=== PATIENT | male | born 1930 | race Caucasian/White ===

== ENCOUNTER → 2016-10-16 | Outpatient (CLI) | payer OTHER ==
[~2016-10-16] MED LIST: ASPI325T45 PO; BRIM0.2S TOP; GLC/500 PO; LANS15CA27 PO; SIMV10TA5 PO; ZOLP5TAB PO
[2016-10-16 11:20] LABS: BASO % 0.5 %; BASO ABS # 0.03 K/uL (0-0.2); COMPLETE YES; EOS % 4.9 %; HEMATOCRIT 45.4 % (42-52); IG% 0.3 %; LYMPH % 34.9 %; LYMPH ABS # 2.07 K/uL (1.2-3.4); MEAN CELL VOLUME 92.1 fL (80-100); MEAN CORPUSCULAR HEMOGLOBIN 30.8 pg (25-34); MEAN CORPUSCULAR HGB CONC 33.5 g/dl (32-36); MEAN PLATELET VOLUME 10.3 fL (7.4-10.4); MONO % 9.3 %; NEUT % 50.1 %; PLATELET COUNT 251 K/uL (130-400); RED BLOOD COUNT 4.93 M/uL (4.7-6.1); WHITE BLOOD COUNT 5.93 K/uL (4.8-10.8)
[2016-10-16 11:39] LABS: ALT/SGPT 32 U/L (12-78); BLOOD UREA NITROGEN 18 mg/dl (7-18); BUN/CREATININE RATIO 15.3 (10-20); CARBON DIOXIDE 28 mmol/L (21-32); CHLORIDE 106 mmol/L (98-107); CHOLESTEROL 176 mg/dl (0-200); GLUCOSE 113 mg/dl (70-99); POTASSIUM 4.2 mmol/L (3.5-5.1); SODIUM 143 mmol/L (136-145); TRIGLYCERIDES 198 mg/dl (0-150); VERY LOW DENSITY LIPOPROT CALC 40 mg/dl
[2016-10-16 11:41] LABS: ESTIMATED AVERAGE GLUCOSE 128 mg/dl; HA1C FLAG Normal (Normal)
[2016-10-16 11:46] LABS: ALB/GLOB RATIO 1.2 (0.9-2); ALKALINE PHOSPHATASE 71 U/L (45-117); AST/SGOT 25 U/L (15-37); CHOLESTEROL/HDL RATIO 4.6; HDL CHOLESTEROL 38 mg/dl; LDL CHOLESTEROL CALCULATED 98 mg/dl
--- NOTE | 2016-10-20 11:03 | CODING QUERY MEDICAL NECESSITY ---
SUPPORTING DIAGNOSIS NEEDED A supporting diagnosis is required for the test/procedure performed on this patient in order for us to be reimbursed by the patient's insurance. Please provide a supporting diagnosis for the following test/procedure listed below next to the test name along with your signature. *If there is no additional diagnosis for this patient that would support the following test/procedure please document that below next to the test/procedure. Test(s)/Procedure(s) that require a supporting diagnosis: * HEMOGLOBIN A1C DIAGNOSIS: Provider Signature: Date: Thank you Gavi Jamil [facility] Information Management Once completed, please kindly fax back to [phone] For questions please call [phone]
== END | disposition home or self-care (01) ==
LOC: C.LABBC 06:56
PROVIDERS: ATTEND Internal Medicine
DX: E78.5 Hyperlipidemia, unspecified (principal); E11.9 Type 2 diabetes mellitus without complications

== ENCOUNTER → 2017-03-27 | Outpatient (CLI) | payer OTHER ==
[2017-03-27 11:07] LABS: BASO % 0.5 %; BASO ABS # 0.03 K/uL (0-0.2); COMPLETE YES; EOS % 5.9 %; HEMATOCRIT 44.6 % (42-52); IG% 0.2 %; LYMPH ABS # 2.12 K/uL (1.2-3.4); MEAN CELL VOLUME 89.4 fL (80-100); MEAN CORPUSCULAR HEMOGLOBIN 31.1 pg (25-34); MEAN CORPUSCULAR HGB CONC 34.8 g/dl (32-36); MEAN PLATELET VOLUME 10.1 fL (7.4-10.4); MONO % 8.4 %; PLATELET COUNT 246 K/uL (130-400); RED BLOOD COUNT 4.99 M/uL (4.7-6.1); WHITE BLOOD COUNT 6.63 K/uL (4.8-10.8)
[2017-03-27 11:27] LABS: ALT/SGPT 27 U/L (12-78); BLOOD UREA NITROGEN 23 mg/dl (7-18); BUN/CREATININE RATIO 17.9 (10-20); CALCIUM 9.2 mg/dl (8.5-10.1); CARBON DIOXIDE 30 mmol/L (21-32); CHLORIDE 105 mmol/L (98-107); CHOLESTEROL 152 mg/dl (0-200); GLUCOSE 107 mg/dl (70-99); POTASSIUM 4.1 mmol/L (3.5-5.1); SODIUM 140 mmol/L (136-145); TRIGLYCERIDES 165 mg/dl (0-150); VERY LOW DENSITY LIPOPROT CALC 33 mg/dl
[2017-03-27 11:28] LABS: ESTIMATED AVERAGE GLUCOSE 126 mg/dl; HA1C FLAG Normal (Normal)
[2017-03-27 11:30] LABS: ALB/GLOB RATIO 1.2 (0.9-2); ALKALINE PHOSPHATASE 76 U/L (45-117); AST/SGOT 19 U/L (15-37); CHOLESTEROL/HDL RATIO 4.1; HDL CHOLESTEROL 37 mg/dl; LDL CHOLESTEROL CALCULATED 82 mg/dl
== END | disposition home or self-care (01) ==
LOC: C.LABBC 07:25
PROVIDERS: ATTEND Internal Medicine
DX: K21.9 Gastro-esophageal reflux disease without esophagitis (principal); R74.8 Abnormal levels of other serum enzymes; E11.9 Type 2 diabetes mellitus without complications; E78.5 Hyperlipidemia, unspecified; E55.9 Vitamin D deficiency, unspecified

== ENCOUNTER 2021-01-24 12:03 | Inpatient (IN) ==
[2021-01-24] MEDS ORDERED: HYDROmorphone INJ 0.5 MG/0.5 ML SYR IV PRN ×2 (13:22)
--- NOTE | 2021-01-24 13:28 | XRay Report ---
LEFT FEMUR 2 VIEWS CLINICAL HISTORY: Fall with left hip pain and decreased mobility. FINDINGS: AP and crosstable lateral views of the left femur are obtained. No prior studies are availa ble for comparison at the time of dictation. The examination is degraded by inability to properly pos ition the patient. The skeletal structures are osteopenic. There is a nondisplaced intertrochanteric fracture of the left femur. Overlying soft tissue edema is noted. The distal femur appears intact. Th e visualized left hemipelvis is intact. The hip joint is maintained noting mild to moderate degenerat paresh joint space narrowing. Atherosclerotic calcification is noted in the popliteal artery. IMPRESSION: Nondisplaced intertrochanteric fracture of the left femur. Electronically signed by: Joe Madrid M.D. 01/24/2021 1:26 PM
[2021-01-24] MEDS ORDERED: SODIUM CHLORIDE 0.9% 1000ML 1,000 ML IV SCH (13:30)
--- NOTE | 2021-01-24 13:31 | Emergency Department Note ---
Impression & Plan Closed fracture of left hip, Accidental fall ED Provider Note INFORMANT: Patient ED PROVIDER(S): Ramana Moran MD CHIEF COMPLAINT: Left hip pain PLAN: Disposition: Admitted Condition: Good Outpatient prescription management: none Referral: None MEDICAL DECISION MAKING: Patient presented to my department because of an accidental fall. Hip pain left hip. X-ray imaging was concerning for an intertrochanteric fracture. Blood work was unremarkable. The patient declined analgesia initially. Consultation was made with Chai Reaves PA-C, [facility] and the [facility]. Patient admitted for further management. Triage Nursing notes reviewed and agree them. Vital Signs: reviewed and remarkable for no significant abnormalities Differential diagnosis: Fracture, dislocation, neurovascular compromise, compartment syndrome, soft tissue injury, as well as other pathologies. Diagnostics interpreted by me: Cardiac Monitoring: Cardiac monitoring ordered by me: The patient was placed on continuous cardiac monitoring and observed. It revealed a normal sinus rhythm at 71 beats per minute without ectopy or evidence of dysrhythmia. Imaging studies: X-ray imaging is consistent with a left intertrochanteric fracture Chest x-ray. Findings: A chest x-ray was performed and revealed no pneumothorax, effusion, infiltrate, pulmonary edema, free air under the diaphragm, or wide mediastinum. Impression: No acute disease. HPI: The patient is a 89 year old male who presents to the Emergency Room with complaints of left hip pain. This started just prior to arrival and is from an accidental fall. The patient also notes the following associated symptoms, inability to stand and walk. The patient has taken no medication for relieving factors. Current pain is rated as 5/10. Patient declines analgesia. He stated he took Tylenol early this morning prior to the accident and is comfortable as long as he does not move. He states he was trying to put on his socks and lost his balance and accidentally fell over. He has a history of chronic back pain and has been followed by [facility] in the past. Pt denies LOC, headache, fevers, chills, diaphoresis, visual changes, neck pain, chest pain, breathing difficulties, nausea, vomiting, abdominal pain, new back pain, melena, hematochezia, urinary symptoms, numbness, weakness, lymphadenopathy, rash, or other complaints. ROS: See above HPI for pertinent positives & negatives. A total of 10 systems reviewed and were otherwise negative. PAST MEDICAL HISTORY:See Below , pulmonary embolism PAST SURGICAL HISTORY:See Below, FAMILY HISTORY:See Below SOCIAL HISTORY:See Below, HOME MEDICATIONS:See Below ALLERGIES:See Below VITALS:See Below PHYSICAL EXAMINATION: GENERAL: Awake, alert, mildly comfortable-appearing, in no distress HENT: Normocephalic, atraumatic. Oropharynx unremarkable. EYES: Normal conjunctiva. Sclera non-icteric. NECK: Inspection normal. Non-tender. Supple. No nuchal rigidity. FROM. No masses. RESPIRATORY: Clear to auscultation. No wheezes. No rales. Normal respiratory effort. CARDIAC: Normal rate. Normal rhythm. No murmurs. No rubs. Extremities warm and well perfused. Pulses equal. No JVD. GI: Soft, non-distended. No tenderness to palpation. No rebound or guarding. No masses. RECTAL: Deferred. MUSCULOSKELETAL: There is mild shortening and external rotation of the left lower extremity. Range of motion is limited secondary to pain in the left hip joint. Left hip joint is tender to palpation. Chest examination reveals no tenderness. The back is symmetrical on inspection without obvious abnormality. There is no CVA tenderness to palpation. No joint edema. LOWER EXTREMITIES: Calves are equal size bilaterally and non-tender. No edema. No discoloration. NEURO: Normal sensorium. No sensory or motor deficits noted. SKIN: No rash or jaundice noted. 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 REASON Squamous cell skin cancer Type 2 diabetes mellitus Vitamin D deficiency Surgical History History of appendectomy History of cataract surgery RT History of cholecystectomy History of colonoscopy History of esophagogastroduodenoscopy (EGD) History of tonsillectomy History of tooth extraction History of trabeculectomy RT EYE Family History (Updated 12/03/20 @ 14:03 by Tabitha Oneal) Mother Alzheimer disease Cerebral atherosclerosis Stroke Dementia Father Colon cancer Peritonitis Family hx of colon cancer Colorectal cancer Myocardial infarction Brother Colon cancer Family hx of colon cancer Colorectal cancer Pulmonary embolism Sister Cancer of mediastinum Grandmother Lymphoma Denies family history of Ovarian cancer Prostate cancer Diabetes Breast cancer Lung cancer Social History (Updated 12/03/20 @ 14:01 by Tabitha Oneal) Smoking Status: Never smoker Second Hand Exposure: No; Hx Alcohol Use: Yes Alcohol type: wine and hard liquor Alcohol Intake Frequency: Monthly or Less Hx Substance Use: No Preferred Language: Belarusian Communication Ability: Effective Visual Impairment: Limited Hearing Ability: Use of Hearing Aid Broadcast Transmitter Operator Required: No Beliefs That Will Affect Care: None marital status: Current Living Situation: Spouse current occupational status: retired How many Children do You have: 3 Feels Safe at Home: Yes Childhood Exposure to Second-Hand Smoke: No caffeine: Yes Dental Care, Regularly: Yes Physical Activity Frequency: 3-4 Times per Week Seatbelt Use: always Sunscreen Use: Yes Assistive Devices: Glasses Allergies Allergies Allergy/AdvReac Type Severity Reaction Status Date / Time Sulfa (Sulfonamide Allergy Intermediate HIVES Verified 01/24/21 13:54 Antibiotics) Home Meds Home Medications Medication Instructions Recorded Confirmed cholecalciferol (vitamin D3) 25 2,000 units PO DAILY cap 11/14/18 01/24/21 mcg (1,000 unit) capsule brimonidine 0.1 % eye drops 1 drp OPL BID 01/24/21 01/24/21 (Alphagan P) dorzolamide 22.3 mg-timolol 6.8 1 drp OPL BID 01/24/21 01/24/21 mg/mL eye drops simvastatin 20 mg tablet 20 mg PO QPM 01/24/21 01/24/21 Previous Rx's Medication Instructions Recorded omeprazole 20 mg tablet,delayed 20 mg PO DAILY #30 tab 04/08/19 release OneTouch Ultra Blue Test Strip #100 ea NS 09/22/19 (blood sugar diagnostic) lancets 33 gauge (GaniparaTouch Delica #100 ea 04/06/20 Plus Lancet) cyanocobalamin (vitamin B-12) 1,000 mcg PO DAILY #30 cap 04/16/20 1,000 mcg capsule folic acid 1 mg tablet 1 mg PO DAILY #30 tab 04/16/20 pyridoxine (vitamin B6) 50 mg 50 mg PO DAILY #30 tab 04/16/20 tablet metformin 500 mg tablet 500 mg PO QPM #90 tab 11/16/20 Results & Data (ED) Vital Signs Vital Signs - 24 hr 01/24/21 12:07 01/24/21 13:21 Temperature 36.8 C Temperature Source Oral Pulse Rate 74 Pulse Rate [Apical] 71 Pulse Rhythm [Apical] Regular Pulse Strength [Apical] Normal Respiratory Rate 16 16 Respiratory Effort / Characteristics Non-Labored Spontaneous Non-Labored Spontaneous Respiratory Depth Normal Normal Blood Pressure 168/89 H Blood Pressure [Right Arm] 158/87 H Blood Pressure Mean 115 Blood Pressure Mean [Right Arm] 110 Blood Pressure Position Lying Blood Pressure Position [Right Arm] Lying Pulse Oximetry 99 96 Oxygen Delivery Method Room Air Room Air Sepsis Recent Fever Within 48 Hours No Sepsis New/Unexplained Change in Mental Status No Sepsis Action Taken by Nursing No Action Required Laboratory Data Result diagrams: 01/24/21 13:17 01/24/21 13:17 Lab Results 01/24/21 01/24/21 01/24/21 Range/Units 13:17 13:17 13:17 WBC 9.75 (4.8-10.8) K/uL RBC 4.97 (4.7-6.1) M/uL Hgb 15.6 (14.0-18.0) g/dL Hct 45.7 (42-52) % MCV 92.0 (80-100) fL MCH 31.4 (25-34) pg MCHC 34.1 (32-36) g/dL RDW Std Deviation 44.7 (36.4-46.3) fL RDW Coeff of Fabiola 13.4 (11.5-14.5) % Plt Count 262 (130-400) K/uL MPV 9.9 (7.4-10.4) fL Immature Gran % (Auto) 0.4 % Neut % (Auto) 73.4 % Lymph % (Auto) 16.0 % Smith % (Auto) 5.6 % Eos % (Auto) 4.4 % Baso % (Auto) 0.2 % Neut # (Auto) 7.15 H (1.4-6.5) K/uL Lymph # (Auto) 1.56 (1.2-3.4) K/uL Smith # (Auto) 0.55 (0.11-0.59) K/uL Eos # (Auto) 0.43 (0-0.5) K/uL Baso # (Auto) 0.02 (0-0.2) K/uL Immature Gran # (Auto) 0.04 H (0.00-0.02) K/uL PT 10.3 (9.0-12.0) Seconds INR 1.0 (0.9-1.1) APTT 25.6 (21.0-31.0) Seconds PTT Ratio 1.0 Sodium 135 L (136-145) mmol/L Potassium 4.9 (3.5-5.1) mmol/L Chloride 104 (98-107) mmol/L Carbon Dioxide 28 (21-32) mmol/L Anion Gap 3.0 (3-11) BUN 23 H (7-18) mg/dl Creatinine 1.46 H (0.6-1.4) mg/dl Est Cr Clr Drug Dosing 32.1 ml/min Est GFR ( Amer) 48.7 ml/min Est GFR (Non-Af Amer) 42.0 ml/min BUN/Creatinine Ratio 16.1 (10-20) Glucose 122 H (70-99) mg/dl Calcium 9.3 (8.5-10.1) mg/dl Total Bilirubin 1.7 H (0.2-1) mg/dl AST 33 (15-37) U/L ALT 48 (12-78) U/L Alkaline Phosphatase 80 (45-117) U/L Total Protein 7.7 (6.4-8.2) gm/dl Albumin 4.0 (3.4-5.0) gm/dl Globulin 3.7 (2.5-4.0) gm/dl Albumin/Globulin Ratio 1.1 (0.9-2) COVID-19 Eval Order Blood Type Antibody Screen 01/24/21 01/24/21 Range/Units 13:30 13:49 WBC (4.8-10.8) K/uL RBC (4.7-6.1) M/uL Hgb (14.0-18.0) g/dL Hct (42-52) % MCV (80-100) fL MCH (25-34) pg MCHC (32-36) g/dL RDW Std Deviation (36.4-46.3) fL RDW Coeff of Fabiola (11.5-14.5) % Plt Count (130-400) K/uL MPV (7.4-10.4) fL Immature Gran % (Auto) % Neut % (Auto) % Lymph % (Auto) % Smith % (Auto) % Eos % (Auto) % Baso % (Auto) % Neut # (Auto) (1.4-6.5) K/uL Lymph # (Auto) (1.2-3.4) K/uL Smith # (Auto) (0.11-0.59) K/uL Eos # (Auto) (0-0.5) K/uL Baso # (Auto) (0-0.2) K/uL Immature Gran # (Auto) (0.00-0.02) K/uL PT (9.0-12.0) Seconds INR (0.9-1.1) APTT (21.0-31.0) Seconds PTT Ratio Sodium (136-145) mmol/L Potassium (3.5-5.1) mmol/L Chloride (98-107) mmol/L Carbon Dioxide (21-32) mmol/L Anion Gap (3-11) BUN (7-18) mg/dl Creatinine (0.6-1.4) mg/dl Est Cr Clr Drug Dosing ml/min Est GFR ( Amer) ml/min Est GFR (Non-Af Amer) ml/min BUN/Creatinine Ratio (10-20) Glucose (70-99) mg/dl Calcium (8.5-10.1) mg/dl Total Bilirubin (0.2-1) mg/dl AST (15-37) U/L ALT (12-78) U/L Alkaline Phosphatase (45-117) U/L Total Protein (6.4-8.2) gm/dl Albumin (3.4-5.0) gm/dl Globulin (2.5-4.0) gm/dl Albumin/Globulin Ratio (0.9-2) COVID-19 Eval Order Covid19 at [facility] Blood Type A Positive Antibody Screen NEGATIVE Administered Medications Sodium Chloride (Nss 1000ml) 1,000 mls @ 75 mls/hr IV .[id number] CARLOS Stop: 01/25/21 02:49 Last Admin: 01/24/21 13:36 Dose: 75 mls/hr Documented by: [id number] Imaging Data Radiologist's Impression: Femur X-Ray 01/24/21 12:32 LEFT FEMUR 2 VIEWS CLINICAL HISTORY: Fall with left hip pain and decreased mobility. FINDINGS: AP and crosstable lateral views of the left femur are obtained. No pr ior studies are available for comparison at the time of dictation. The examination is degraded by inability to properly position the patient. The skeletal structures are osteopenic. There is a nondisplaced intertrochanteric fracture of the left femur. Overlying soft tissue edema is noted. The distal femur appears intact. The visualized left hemipelvis is intact. The hip joint is maintained noting mild to moderate degenerative joint space narrowing. Atherosclerotic calcification is noted in the popliteal artery. IMPRESSION: Nondisplaced intertrochanteric fracture of the left femur. Electronically signed by: Joe Madrid M.D. 01/24/2021 1:26 PM Chest X-Ray 01/24/21 13:20 XR chest 1V portable HISTORY: 89 years-old Male HIP FX fracture of the left hip COMPARISON: Chest CT 10/16/2019 TECHNIQUE: Portable AP view of the chest FINDINGS: Calcified granulomata of the right lung. Cardiomediastinal and hilar silhouettes are within normal limits. No pneumothorax, pleural effusion, airspace consolidation or overt pulmonary edema. Degenerative changes of the shoulders and spine. IMPRESSION: No acute process. ACT 112: Negative or not required by law. The above report was generated using voice recognition software. It may contain grammatical, syntax or spelling errors. Electronically signed by: Aurelio Cramer M.D. 01/24/2021 1:54 PM Discharge Plan Visit Data Chief Complaint: Fall Stated Complaint: FALL ED Provider: Ramana Moran Discharge Problem: Closed fracture of left hip, Accidental fall Forms Stand Alone Forms: [facility] Prescriptions Prescriptions: No Action (DME) OneTouch Ultra Blue Test Strip Strip See Dose Instructions .ROUTE .MEDSUPPLY Qty: 100 RF: 3 (DME) lancets [OneTouch Delica Plus Lancet] 33 gauge misc See Dose Instructions .ROUTE .MEDSUPPLY Qty: 100 RF: 3 cyanocobalamin (vitamin B-12) 1,000 mcg capsule 1,000 mcg PO DAILY Qty: 30 RF: 0 folic acid 1 mg tablet 1 mg PO DAILY Qty: 30 RF: 2 pyridoxine (vitamin B6) 50 mg tablet 50 mg PO DAILY Qty: 30 RF: 0 metformin 500 mg tablet 500 mg PO QPM Qty: 90 RF: 3 cholecalciferol (vitamin D3) 1,000 unit capsule 2,000 units PO DAILY RF: 0 omeprazole 20 mg tablet,delayed release (DR/EC) 20 mg PO DAILY Qty: 30 RF: 2 dorzolamide-timolol 22.3-6.8 mg/mL drops 1 drp OPL BID RF: 0 Alphagan P 0.1 % drops 1 drp OPL BID RF: 0 simvastatin 20 mg tablet 20 mg PO QPM RF: 0 Referrals Referrals: Liang Low MD [Primary Care Provider] -
[2021-01-24 13:38] LABS: Basophils # (auto) 0.02 K/uL (0-0.2); Basophils % (auto) 0.2 %; Eosinophils # (auto) 0.43 K/uL (0-0.5); Eosinophils % (auto) 4.4 %; Hematocrit (blood only) 45.7 % (42-52); Hemoglobin 15.6 g/dL (14.0-18.0); Immature Granulocytes # (auto) 0.04 K/uL (0.00-0.02); Immature Granulocytes % (auto) 0.4 %; Lymphocytes # (auto) 1.56 K/uL (1.2-3.4); Mean Corpuscular Hemoglobin 31.4 pg (25-34); Mean Corpuscular Hgb Conc 34.1 g/dL (32-36); Mean Platelet Volume 9.9 fL (7.4-10.4); Monocytes # (auto) 0.55 K/uL (0.11-0.59); Monocytes % (auto) 5.6 %; Neutrophils # (auto) 7.15 K/uL (1.4-6.5); Neutrophils % (auto) 73.4 %; Platelet Count 262 K/uL (130-400); RDW Coefficient of Variation 13.4 % (11.5-14.5); RDW Standard Deviation 44.7 fL (36.4-46.3); Red Blood Count 4.97 M/uL (4.7-6.1); White Blood Count 9.75 K/uL (4.8-10.8)
[2021-01-24 13:43] LABS: Partial Thromboplastin Time 25.6 Seconds (21.0-31.0); Prothrombin Time 10.3 Seconds (9.0-12.0)
[2021-01-24 13:50] LABS: BUN Creatinine Ratio 16.1 (10-20); Calcium 9.3 mg/dl (8.5-10.1); Creatinine Clr Calc Pharmacy 32.1 ml/min; Est GFR (African American) 48.7 ml/min; Potassium 4.9 mmol/L (3.5-5.1)
[2021-01-24 13:53] LABS: Albumin Globulin Ratio 1.1 (0.9-2); Bilirubin,Total 1.7 mg/dl (0.2-1); Globulin 3.7 gm/dl (2.5-4.0); Total Protein 7.7 gm/dl (6.4-8.2)
--- NOTE | 2021-01-24 13:56 | XRay Report ---
XR chest 1V portable HISTORY: 89 years-old Male HIP FX fracture of the left hip COMPARISON: Chest CT 10/16/2019 TECHNIQUE: Portable AP view of the chest FINDINGS: Calcified granulomata of the right lung. Cardiomediastinal and hilar silhouettes are within normal li mits. No pneumothorax, pleural effusion, airspace consolidation or overt pulmonary edema. Degenerativ e changes of the shoulders and spine. IMPRESSION: No acute process. ACT 112: Negative or not required by law. The above report was generated using voice recognition software. It may contain grammatical, syntax o r spelling errors. Electronically signed by: Aurelio Cramer M.D. 01/24/2021 1:54 PM
--- NOTE | 2021-01-24 15:24 | History & Physical Report ---
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 normally 1.3-1.9 - LR at 90 ml/hour - Follow BMP avoid further nephrotoxic medications - Hold Metformin (3) Lumbar spinal stenosis: Plan: Chronic- with some mild radiculopathy down bilateral upper thigh - tiered pain control as above (4) Coronary artery calcification: Plan: Noted on CT scan in 2019 - Normal ECG, no anginal symptoms or exercises intolerance - Continue with simvastatin 20mg - ASA restart when cleared from surgical perspective (5) Pulmonary embolism, bilateral: Plan: As per HPI- off anticoagulation for ~year - is on folate for hyperhomocystienemia (6) Type 2 diabetes mellitus: Plan: Goal <180 - AC/HS checks - notify hospitalist if >180 will add coverage (7) Glaucoma: Plan: Continue home eye drops (8) Dyslipidemia: Plan: Continue simvastatin History of Present Illness Primary Care Provider: Liang Low MD 89 YOM with past medical history of: Saddle PE (2019 treated with 1 year of Xeralto), colonic polyps, coronary artery calcification (called on CT scan of the chest 2019), DMII, lumbar stenosis, GERD. Patient comes to the EMD today following a fall onto his left hip. The patient was trying to put his socks on while standing up and fell on to his left hip, resulted in immediate pain and external rotation. In the EMD the patient had a Femur x-ray of the left leg, that revealed a nondisplaced intertrochanteric fracture of the left femur. Hospitalist service was consulted for admission. His pain is currently controlled, no NV/CV changes to the left leg. [facility] orthopaedics consulted for evaluation of surgical repair. The patient's pulmonary embolism was in 2019, following drive to [place] which he reports that they stopped and had breaks, but that night he got short of breath and was taken to [facility] in [place], as this is where they were visiting. The patient reportedly had saddle pulmonary embolism at that time, as well as a lower extremity ultrasound revealing a occlusive thrombus to right popliteal vein extending into posterior tibial and peroneall veins. He spent a year on Xarelto and had a hypercoagulable workup performed. His hypercoag work-up revealed elevated homocysteine level so was placed on folate by his PCP. He had a follow up CT in 2019 to evaluate a questionable pulmonary nodule in the right upper lobe of his lung. This CT scan did not show pulmonary nodule but did note moderate coronary calcifications. He remains on daily asa and simvastatin 20mg. He is on Metformin for his DM II. The patient golfs at least 3 days a week (rides in cart), but does use stationary bicycle at least 3 times per week for 15-20 minutes at a time. He denies ever having any chest pain or dyspnea with these activities or being winded when walking up and down his steps or performing tasks around the house. His Revised Cardiac risk index is 0.4% and his geriatric sensitive probability of perioperative myocardial infraction or cardiac arrest is 0.3%. Patient will be admitted- kept NPO until evaluated by orthopaedics, hold asa and chemoprophylaxis until evaluated by orthopaedics. Continue with multi-tiered pain control. Allergies Allergy/AdvReac Type Severity Reaction Status Date / Time Sulfa (Sulfonamide Allergy Intermediate HIVES Verified 01/24/21 13:54 Antibiotics) Home Medications Medication Instructions Recorded Confirmed Type cholecalciferol (vitamin D3) 25 2,000 units PO DAILY cap 11/14/18 01/24/21 History mcg (1,000 unit) capsule omeprazole 20 mg tablet,delayed 20 mg PO DAILY #30 tab 04/08/19 01/24/21 Rx release OneTouch Ultra Blue Test Strip #100 ea NS 09/22/19 12/03/20 Rx (blood sugar diagnostic) lancets 33 gauge (OneTouch Delica #100 ea 04/06/20 12/03/20 Rx Plus Lancet) cyanocobalamin (vitamin B-12) 1,000 mcg PO DAILY #30 cap 04/16/20 01/24/21 Rx 1,000 mcg capsule folic acid 1 mg tablet 1 mg PO DAILY #30 tab 04/16/20 01/24/21 Rx pyridoxine (vitamin B6) 50 mg 50 mg PO DAILY #30 tab 04/16/20 01/24/21 Rx tablet metformin 500 mg tablet 500 mg PO QPM #90 tab 11/16/20 01/24/21 Rx brimonidine 0.1 % eye drops 1 drp OPL BID 01/24/21 01/24/21 History (Alphagan P) dorzolamide 22.3 mg-timolol 6.8 1 drp OPL BID 01/24/21 01/24/21 History mg/mL eye drops simvastatin 20 mg tablet 20 mg PO QPM 01/24/21 01/24/21 History Past Med/Surg History Medical History Acquired spondylolisthesis of lumbosacral region Basal cell carcinoma of skin REMOVED ON LEFT EAR (GRAFTING DONE) Benign colonic polyp Degenerative disc disease Dyslipidemia Gastroesophageal reflux disease without esophagitis GERD (gastroesophageal reflux disease) Glaucoma Incidental lung nodule "BENIGN" Irregular heart beat NO CARDS Irritable bowel syndrome with diarrhea Pulmonary embolism, bilateral 2018 (REASON FOR XARELTO) ? REASON Squamous cell skin cancer Type 2 diabetes mellitus Vitamin D deficiency Surgical History History of appendectomy History of cataract surgery RT History of cholecystectomy History of colonoscopy History of esophagogastroduodenoscopy (EGD) History of tonsillectomy History of tooth extraction History of trabeculectomy RT EYE Family History Mother Alzheimer disease Cerebral atherosclerosis Stroke Dementia Father Colon cancer Peritonitis Family hx of colon cancer Colorectal cancer Myocardial infarction Brother Colon cancer Family hx of colon cancer Colorectal cancer Pulmonary embolism Sister Cancer of mediastinum Grandmother Lymphoma Denies family history of Ovarian cancer Prostate cancer Diabetes Breast cancer Lung cancer Social History Smoking Status: Never smoker Second Hand Exposure: No; Hx Alcohol Use: Yes Alcohol type: wine and hard liquor Alcohol Intake Frequency: Monthly or Less Hx Substance Use: No Preferred Language: Divehi Communication Ability: Effective Visual Impairment: Limited Hearing Ability: Use of Hearing Aid Elastic Tape Inserter Required: No Beliefs That Will Affect Care: None marital status: Current Living Situation: Spouse current occupational status: retired How many Children do You have: 3 Other Information That Helps Us Care for You: No Feels Safe at Home: Yes Safety Concerns: Feels Safe At This Time Childhood Exposure to Second-Hand Smoke: No caffeine: Yes Dental Care, Regularly: Yes Physical Activity Frequency: 3-4 Times per Week Seatbelt Use: always Sunscreen Use: Yes Assistive Devices: Glasses Review of Systems Review of Systems: REVIEW OF SYSTEMS: Constitutional: No fever, sweats or chills Eyes: No diplopia, no worsening or blurred vision ENT: normal hearing, no trouble swallowing Respiratory: No cough, sputum, dyspnea at rest or on exertion Cardiovascular: No chest pain, tightness or palpitations Abdomen: No pain, nausea, vomiting, diarrhea or constipation Musculoskeletal: (+) as per HIP, Neurologic: No weakness, numbness/tingling, or balance problems Psychiatric: No anxiety or depression Skin: No rash or itch Physical Exam Physical Exam: PHYSICAL EXAM: General: awake, alert, no apparent distress Head: Normocephalic, atraumatic ENT: PERRL, EOMI, no pharyngeal exudate, mucous membranes moist Neuro: AAO x 3, speech clear and appropriate, strength intact bilaterally 5/5, sensation intact and equal all extremities and dermatomes, no pronator drift Chest: equal rise and fall of the chest, no accessory muscle use, no heaves or thrills, Clear to auscultation, on room air, Cardiac: Regular rate and rhythm, telemetry reviewed, skin warm dry, cap refill <3 seconds, peripheral pulses +2 no JVD, no murmur, no edema GI: NABS x 4 quadrants, soft, nontender to palpation, no rebound, guarding or tenderness : Spontaneously voiding, no pain, no CVA tenderness, Extremities: Pain to left hip, external rotation, no peripheral edema or erythema, calfs nontender to palpation Psych: Normal mood and affect Skin: no rash or erythema Results & Data Results & Data ([facility]) Vital Signs (Past 12 Hours) Vital Signs Temp Pulse Pulse Resp BP BP Pulse Ox 01/24/21 13:21 71 16 158/87 H 96 01/24/21 12:07 36.8 C 74 16 168/89 H 99 Laboratory Results Abnormal lab results 01/24/21 01/24/21 Range/Units 13:17 13:17 Neut # (Auto) 7.15 H (1.4-6.5) K/uL Immature Gran # (Auto) 0.04 H (0.00-0.02) K/uL Sodium 135 L (136-145) mmol/L BUN 23 H (7-18) mg/dl Creatinine 1.46 H (0.6-1.4) mg/dl Glucose 122 H (70-99) mg/dl Total Bilirubin 1.7 H (0.2-1) mg/dl Diagnostic Findings Femur X-Ray 01/24/21 12:32 LEFT FEMUR 2 VIEWS CLINICAL HISTORY: Fall with left hip pain and decreased mobility. FINDINGS: AP and crosstable lateral views of the left femur are obtained. No prior studies are available for comparison at the time of dictation. The examination is degraded by inability to properly position the patient. The skel etal structures are osteopenic. There is a nondisplaced intertrochanteric fracture of the left femur. Overlying soft tissue edema is noted. The distal femur appears intact. The visualized left hemipelvis is intact. The hip joint is maintained noting mild to moderate degenerative joint space narrowing. Atherosclerotic calcification is noted in the popliteal artery. IMPRESSION: Nondisplaced intertrochanteric fracture of the left femur. Electronically signed by: Joe Madrid M.D. 01/24/2021 1:26 PM Chest X-Ray 01/24/21 13:20 XR chest 1V portable HISTORY: 89 years-old Male HIP FX fracture of the left hip COMPARISON: Chest CT 10/16/2019 TECHNIQUE: Portable AP view of the chest FINDINGS: Calcified granulomata of the right lung. Cardiomediastinal and hilar silhouettes are within normal limits. No pneumothorax, pleural effusion, airspace consolidation or overt pulmonary edema. Degenerative changes of the shoulders and spine. IMPRESSION: No acute process. ACT 112: Negative or not required by law. The above report was generated using voice recognition software. It may contain grammatical, syntax or spelling errors. Electronically signed by: Aurelio Cramer M.D. 01/24/2021 1:54 PM Medications Administered Sodium Chloride (Nss 1000ml) 1,000 mls @ 75 mls/hr IV .[id number] [facility] Stop: 01/25/21 02:49 Last Admin: 01/24/21 13:36 Dose: 75 mls/hr Documented by: [id number] Home Medications cholecalciferol (vitamin D3) 25 mcg (1,000 unit) capsule 2,000 units PO DAILY cap 11/14/18 [History Confirmed 01/24/21] omeprazole 20 mg tablet,delayed release 20 mg PO DAILY #30 tab 04/08/19 [Rx Confirmed 01/24/21] [employer] Ultra Blue Test Strip (blood sugar diagnostic) #100 ea NS 09/22/19 [Rx Confirmed 12/03/20] lancets 33 gauge (AiCurisTouch Delica Plus Lancet) #100 ea 04/06/20 [Rx Confirmed 12/03/20] cyanocobalamin (vitamin B-12) 1,000 mcg capsule 1,000 mcg PO DAILY #30 cap 04/16/20 [Rx Confirmed 01/24/21] folic acid 1 mg tablet 1 mg PO DAILY #30 tab 04/16/20 [Rx Confirmed 01/24/21] pyridoxine (vitamin B6) 50 mg tablet 50 mg PO DAILY #30 tab 04/16/20 [Rx Confirmed 01/24/21] metformin 500 mg tablet 500 mg PO QPM #90 tab 11/16/20 [Rx Confirmed 01/24/21] brimonidine 0.1 % eye drops (Alphagan P) 1 drp OPL BID 01/24/21 [History Confirmed 01/24/21] dorzolamide 22.3 mg-timolol 6.8 mg/mL eye drops 1 drp OPL BID 01/24/21 [History Confirmed 01/24/21] simvastatin 20 mg tablet 20 mg PO QPM 01/24/21 [History Confirmed 01/24/21] Active Medications Hydromorphone HCl (Hydromorphone Inj 0.5 Mg/0.5 Ml Syr) 0.25 mg IV Q20M PRN PRN Reason: Moderate Pain (Rating 3,4,5,6) Stop: 02/07/21 13:21 Hydromorphone HCl (Hydromorphone Inj 0.5 Mg/0.5 Ml Syr) 0.5 mg IV Q20M PRN PRN Reason: Severe Pain (Rating 7,8,9,10) Stop: 02/07/21 13:21 Sodium Chloride (Nss 1000ml) 1,000 mls @ 75 mls/hr IV .[id number] CARLOS Stop: 01/25/21 02:49 Last Admin: 01/24/21 13:36 Dose: 75 mls/hr Documented by: ECG Additional Comments: NSR normal ECG Code Status & VTE Plan Code Status CODE: FULL VTE: SCDS, TEDs, chemoprophylaxis defer to orthopaedics VTE Prophylaxis Plan VTE Prophylaxis will be ordered: Yes Supervising Physician Co-Signing Physician Notes Patient was seen and examined independently I discussed the case with Finn CERVANTES I reviewed pertinent past medical social family history and also the plan of care and agree with the plan of care. Patient with a fall and left intertrochanteric hip fracture. Seen by orthopedics in the ER. Plan for surgical repair. No unstable anginal symptoms or heart failure symptoms preoperatively. Only cardiopulmonary symptom is a was considered provoked PE in 2019 after car ride to [place]. Patient was on anticoagulation for a year now stopped. Patient is a moderate risk only due to age for surgery however he seems to be stable to proceed for surgical repair of a hip fracture. His cardiac exam is regular without murmurs his lungs are clear his abdomen normoactive bowel sounds soft nontender his left leg is more tender proximally than distally. His ankle is tender to mild movement the tenderness however is the hip not the ankle. Conditions to proceed to repair of hip fracture Any exceptions will be noted below PG Care Time/CCT Total # of Minutes Spent Total Time Spent with Patient: Total time spent is greater than 50% in coordination of care (as documented) at patient's floor/unit and/or counseling patient: Coding Level of Care Code 67096 Initial Inpt Care Lvl 3 Diagnoses Intertrochanteric fracture of left femur S72.142A Lumbar spinal stenosis M48.062 Neurogenic claudication status: with neurogenic claudication Coronary artery calcification I25.10; I25.84 Pulmonary embolism, bilateral I26.99 Type 2 diabetes mellitus E11.9 Diabetes mellitus complication status: without complication Diabetes mellitus mcc insulin use: without 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
--- NOTE | 2021-01-24 15:36 | Orthopedic Consultation ---
Date of Consultation January 24, 2021 Assessment & Plan (1) Intertrochanteric fracture of left femur: Left minimally displaced intertrochanteric hip fracture. Patient will require left TFN. I have discussed the case with [facility] physicians. Patient may eat up until midnight tonight and then be n.p.o. thereafter. Surgery explained to patient and . All questions answered to the best of my knowledge. Plan for OR tomorrow. 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 He states that he stood up today and decided to try to put his socks on while standing up. As he had leaned over to put one of his socks on it he ended up losing his balance. As he was starting to fall he feels he twisted his left leg and fell directly onto the left side of the hip. He had immediate pain and difficulty in ambulating. He denies loss of consciousness. He denies hitting his head. There was no shortness of breath, chest pain, lightheadedness prior to or after the fall. He was brought to the emergency room and seen by the staff. X-rays were taken and was found that he has a left intertrochanteric hip fracture. [facility] We have been asked to see him for his hip fracture. He is currently awake and alert. Pain is controlled. His is present. We discussed surgical fixation. Patient in agreement and planning for OR tomorrow. Allergies Allergy/AdvReac Type Severity Reaction Status Date / Time Sulfa (Sulfonamide Allergy Intermediate HIVES Verified 01/24/21 13:54 Antibiotics) Home Medications Medication Instructions Recorded Confirmed Type cholecalciferol (vitamin D3) 25 2,000 units PO DAILY cap 11/14/18 01/24/21 History mcg (1,000 unit) capsule omeprazole 20 mg tablet,delayed 20 mg PO DAILY #30 tab 04/08/19 01/24/21 Rx release Shot & ShopTouch Ultra Blue Test Strip #100 ea NS 09/22/19 12/03/20 Rx (blood sugar diagnostic) lancets 33 gauge (Shot & ShopTouch Delica #100 ea 04/06/20 12/03/20 Rx Plus Lancet) cyanocobalamin (vitamin B-12) 1,000 mcg PO DAILY #30 cap 04/16/20 01/24/21 Rx 1,000 mcg capsule folic acid 1 mg tablet 1 mg PO DAILY #30 tab 04/16/20 01/24/21 Rx pyridoxine (vitamin B6) 50 mg 50 mg PO DAILY #30 tab 04/16/20 01/24/21 Rx tablet metformin 500 mg tablet 500 mg PO QPM #90 tab 11/16/20 01/24/21 Rx brimonidine 0.1 % eye drops 1 drp OPL BID 01/24/21 01/24/21 History (Alphagan P) dorzolamide 22.3 mg-timolol 6.8 1 drp OPL BID 01/24/21 01/24/21 History mg/mL eye drops simvastatin 20 mg tablet 20 mg PO QPM 01/24/21 01/24/21 History Patient History Medical History Acquired spondylolisthesis of lumbosacral region Basal cell carcinoma of skin REMOVED ON LEFT EAR (GRAFTING DONE) Benign colonic polyp Degenerative disc disease Dyslipidemia Gastroesophageal reflux disease without esophagitis GERD (gastroesophageal reflux disease) Glaucoma Incidental lung nodule "BENIGN" Irregular heart beat NO CARDS Irritable bowel syndrome with diarrhea Pulmonary embolism, bilateral 2019 (REASON FOR XARELTO) ? REASON Squamous cell skin cancer Type 2 diabetes mellitus Vitamin D deficiency Surgical History History of appendectomy History of cataract surgery RT History of cholecystectomy History of colonoscopy History of esophagogastroduodenoscopy (EGD) History of tonsillectomy History of tooth extraction History of trabeculectomy RT EYE Family History Mother Alzheimer disease Cerebral atherosclerosis Stroke Dementia Father Colon cancer Peritonitis Family hx of colon cancer Colorectal cancer Myocardial infarction Brother Colon cancer Family hx of colon cancer Colorectal cancer Pulmonary embolism Sister Cancer of mediastinum Grandmother Lymphoma Denies family history of Ovarian cancer Prostate cancer Diabetes Breast cancer Lung cancer Social History Smoking Status: Never smoker Second Hand Exposure: No; Hx Alcohol Use: Yes Alcohol type: wine and hard liquor Alcohol Intake Frequency: Monthly or Less Hx Substance Use: No Preferred Language: Trinidadian Communication Ability: Effective Visual Impairment: Limited Hearing Ability: Use of Hearing Aid Sanitation Technician Required: No Beliefs That Will Affect Care: None marital status: Current Living Situation: Spouse current occupational status: retired How many Children do You have: 3 Other Information That Helps Us Care for You: No Feels Safe at Home: Yes Safety Concerns: Feels Safe At This Time Childhood Exposure to Second-Hand Smoke: No caffeine: Yes Dental Care, Regularly: Yes Physical Activity Frequency: 3-4 Times per Week Seatbelt Use: always Sunscreen Use: Yes Assistive Devices: Glasses Physical Exam Physical Exam: Patient is an 89-year-old white male who appears younger than his stated age. He is alert and oriented x3. No acute distress. Pleasant and cooperative.On examination of his left lower extremity, the hip is flexed to approximately 40 degrees and the knee is flexed at approximately 90 degrees which is the most comfortable position for him at this time. No attempts were made to do any range of motion with the left hip or knee secondary to his hip fracture. His left knee is nontender on palpation and there is no effusion or erythema. Left ankle is nontender on palpation, there is no edema, and he has good range of motion at this time. Right lower extremity is unaffected at this time and there is no tenderness at the right hip, knee, ankle. Upper e xtremities are unaffected. He is nontender at the shoulders, elbows and wrists. He denies any new cervical, thoracic, lumbar pain. There is no gross motor or sensory loss at this time. Distal pulses are equal bilaterally of the upper and lower extremities. Results & Data ([facility]) Vital Signs (Past 12 Hours) Vital Signs Temp Pulse Pulse Resp BP BP Pulse Ox 01/24/21 13:21 71 16 158/87 H 96 01/24/21 12:07 36.8 C 74 16 168/89 H 99 Diagnostic Findings Patient: MISTY YOUNG Date: 01/24/21MR#: [id number]Acct ID:[id number]: [facility]: [facility] Zip: [place], [place] [address]Lku: 89Location: EDSex: MRoom/Bed:Att Phy:Diagnosis: FALLPri Phy: Liang Low MDService Date: 01/24/21Fa Phy:Interpreting Phy: Joe Madrid MDAdmit Phy: Ordering Phy: Ramana Moran MD cc: ~ LEFT FEMUR 2 VIEWS CLINICAL HISTORY: Fall with left hip pain and decreased mobility. FINDINGS: AP and crosstable lateral views of the left femur are obtained. No prior studies are available for comparison at the time of dictation. The examination is degraded by inability to properly position the patient. The skeletal structures are osteopenic. There is a nondisplaced intertrochanteric fracture of the left femur. Overlying soft tissue edema is noted. The distal femur appears intact. The visualized left hemipelvis is intact. The hip joint is maintained noting mild to moderate degenerative joint space narrowing. Atherosclerotic calcification is noted in the popliteal artery. IMPRESSION: Nondisplaced intertrochanteric fracture of the left femur.
[2021-01-24] MEDS ORDERED: bisacodyL 10 MG SUPP PR PRN (16:58)
[2021-01-24] MEDS ORDERED: oxyCODONE HCL IR 5 MG TAB (IMMEDIATE RELEASE) PO PRN (16:58)
[2021-01-24] MEDS ORDERED: ONDANSETRON INJ 2 MG/ML 2 ML VIAL IV PRN (16:58)
[2021-01-24] MEDS ORDERED: LACTATED RINGER'S 1,000 ML IV SCH (16:58)
[2021-01-24] MEDS ORDERED: NALOXONE HCL 0.4 MG/1 ML VIAL/CARP IV PRN (16:58)
[2021-01-24] MEDS ORDERED: MAGNESIUM HYDROXIDE SUSP 30 ML UDC PO PRN (16:58)
[2021-01-24] MEDS: HYDROmorphone INJ 0.5 MG/0.5 ML SYR IV PRN (17:23)
[2021-01-24] MEDS: LACTATED RINGER'S 1,000 ML IV SCH (17:32)
--- NOTE | 2021-01-24 17:44 | Anesthesiology Consultation ---
Date of Service January 24, 2021 Assessment & Plan Chart Review Chart Review: Acceptable Risk for Surgery and Patient NOT seen in Pre Admission Testing Consults Requested none ASA ASA4 History Surgery Operation Date: 01/25/21 07:50 Proposed Procedures p Left Trochanteric Femoral Nail(Left) - Bud Garrett DO Height/Weight Height: 5 ft 7 in Weight: 77.564 kg Allergies Allergy/AdvReac Type Severity Reaction Status Date / Time Sulfa (Sulfonamide Allergy Intermediate HIVES Verified 01/24/21 13:54 Antibiotics) Medications Home Medications Medication Instructions Recorded Confirmed Last Taken cholecalciferol (vitamin D3) 25 2,000 units PO DAILY cap 11/14/18 01/24/21 02/01/20 mcg (1,000 unit) capsule omeprazole 20 mg tablet,delayed 20 mg PO DAILY #30 tab 04/08/19 01/24/21 02/01/20 release DrillinginfoTouch Ultra Blue Test Strip #100 ea NS 09/22/19 12/03/20 Unknown (blood sugar diagnostic) lancets 33 gauge (OneTouch Delica #100 ea 04/06/20 12/03/20 Unknown Plus Lancet) cyanocobalamin (vitamin B-12) 1,000 mcg PO DAILY #30 cap 04/16/20 01/24/21 Unknown 1,000 mcg capsule folic acid 1 mg tablet 1 mg PO DAILY #30 tab 04/16/20 01/24/21 Unknown pyridoxine (vitamin B6) 50 mg 50 mg PO DAILY #30 tab 04/16/20 01/24/21 Unknown tablet metformin 500 mg tablet 500 mg PO QPM #90 tab 11/16/20 01/24/21 Unknown brimonidine 0.1 % eye drops 1 drp OPL BID 01/24/21 01/24/21 Unknown (Alphagan P) dorzolamide 22.3 mg-timolol 6.8 1 drp OPL BID 01/24/21 01/24/21 Unknown mg/mL eye drops simvastatin 20 mg tablet 20 mg PO QPM 01/24/21 01/24/21 Unknown Active Medications Generic Name Dose Route Start Last Admin Trade Name Freq PRN Reason Stop Dose Admin Hydromorphone HCl 0.5 mg 01/24/21 16:58 01/24/21 17:23 Hydromorphone Inj 0.5 Mg/0.5 Ml Syr IV 02/07/21 16:57 0.5 mg Q4 PRN Administration Pain (6,7,8,9,10) Lactated Ringer's 1,000 mls @ 90 mls/hr 01/24/21 16:58 01/24/21 17:32 Lr IV 02/23/21 16:57 90 mls/hr .[id number] CARLOS Administration Past Medical History Medical History Acquired spondylolisthesis of lumbosacral region Basal cell carcinoma of skin REMOVED ON LEFT EAR (GRAFTING DONE) Benign colonic polyp Degenerative disc disease Dyslipidemia Gastroesophageal reflux disease without esophagitis GERD (gastroesophageal reflux disease) Glaucoma Incidental lung nodule "BENIGN" Irregular heart beat NO CARDS Irritable bowel syndrome with diarrhea Pulmonary embolism, bilateral 2019 (REASON FOR XARELTO) ? REASON Squamous cell skin cancer Type 2 diabetes mellitus Vitamin D deficiency Exercise / Class Metabolic Activity III < 4 Walking/Shop/Light housework Past Family History Family History Mother Alzheimer disease Cerebral atherosclerosis Stroke Dementia Father Colon cancer Peritonitis Family hx of colon cancer Colorectal cancer Myocardial infarction Brother Colon cancer Family hx of colon cancer Colorectal cancer Pulmonary embolism Sister Cancer of mediastinum Grandmother Lymphoma Denies family history of Ovarian cancer Prostate cancer Diabetes Breast cancer Lung cancer Past Surgical History Surgical History History of appendectomy History of cataract surgery RT History of cholecystectomy History of colonoscopy History of esophagogastroduodenoscopy (EGD) History of tonsillectomy History of tooth extraction History of trabeculectomy RT EYE Past Anesthesia History No Hx of Anesthesia Complications and No Family Hx of Anesthesia Complications History of PONV No Hx of PONV and No Hx of Motion Sickness Social History Smoking Status: Never smoker Hx Alcohol Use: Yes Alcohol type: wine and hard liquor alcohol intake frequency: holidays/special occasions only Hx Substance Use: No substance use type: does not use Physical Exam Vital Signs Last Vital Signs Temp 36.8 C 01/24/21 12:07 Pulse 73 01/24/21 16:00 Resp 23 01/24/21 16:00 BP 146/78 H 01/24/21 16:00 Pulse Ox 99 01/24/21 16:00 Testing Laboratory Results 01/24/21 13:17 01/24/21 13:17 PT 10.3 Seconds (9.0-12.0) 01/24/21 13:17 INR 1.0 (0.9-1.1) 01/24/21 13:17 APTT 25.6 Seconds (21.0-31.0) 01/24/21 13:17 Blood Type A Positive 01/24/21 13:49 Antibody Screen NEGATIVE 01/24/21 13:49 01/24/21 17:15 POC Glucose 115 H Electrocardiogram Date: 01/24/21 Findings: + NSR @ (at 72) Chest X-Ray Date: 01/24/21 Findings: + NAD
[2021-01-24 18:26] LABS: Appearance Urine Clear (Clear); Bilirubin Urine Negative (Negative); Blood Urine Negative (Negative); Color Urine Yellow; Glucose Urine UA Negative (Negative); Ketones Urine Negative (Negative); Leukocyte Esterase Urine Negative (Negative); Nitrite Urine Negative (Negative); Protein Urine Negative (Negative); Specific Gravity Urine 1.012 (1.000-1.030); Urobilinogen Urine Negative (Negative); pH Urine 7.5 (4.5-7.5)
[2021-01-24] MEDS: SIMVASTATIN 20 MG TAB PO SCH (21:48)
[2021-01-24] MEDS: DORZOLAMIDE/TIMOLOL 22.3/6.8MG/ML 10 ML BTL OPL SCH (21:49)
[2021-01-24] MEDS: BRIMONIDINE TARTRATE-P 0.15% 5 ML BTL OP SCH (21:49)
[2021-01-24] MEDS: ACETAMINOPHEN 325 MG TAB PO PRN (22:12)
[2021-01-25] MEDS: HYDROmorphone INJ 0.5 MG/0.5 ML SYR IV PRN ×2 (00:14→08:09)
[2021-01-25] MEDS: LACTATED RINGER'S 1,000 ML IV SCH ×2 (04:46→18:32)
--- NOTE | 2021-01-25 07:18 | History & Physical Bridge Note ---
Date of Service January 25, 2021 History & Physical Bridge Note I have examined the patient, reviewed the History & Physical and in the interval since the performance of the History & Physical I have noted the following changes of clinical significance: no changes noted
[2021-01-25 07:30] LABS: Basophils # (auto) 0.01 K/uL (0-0.2); Basophils % (auto) 0.1 %; Eosinophils # (auto) 0.06 K/uL (0-0.5); Eosinophils % (auto) 0.5 %; Hematocrit (blood only) 43.2 % (42-52); Hemoglobin 15.1 g/dL (14.0-18.0); Immature Granulocytes # (auto) 0.02 K/uL (0.00-0.02); Immature Granulocytes % (auto) 0.2 %; Lymphocytes # (auto) 0.78 K/uL (1.2-3.4); Mean Corpuscular Hemoglobin 31.5 pg (25-34); Mean Platelet Volume 9.8 fL (7.4-10.4); Monocytes # (auto) 0.36 K/uL (0.11-0.59); Monocytes % (auto) 2.8 %; Neutrophils # (auto) 11.73 K/uL (1.4-6.5); Neutrophils % (auto) 90.4 %; Platelet Count 223 K/uL (130-400); RDW Coefficient of Variation 13.2 % (11.5-14.5); RDW Standard Deviation 43.2 fL (36.4-46.3); White Blood Count 12.96 K/uL (4.8-10.8)
[2021-01-25 07:55] LABS: BUN Creatinine Ratio 18.3 (10-20); Calcium 8.9 mg/dl (8.5-10.1); Est GFR (African American) 50.4 ml/min; Est GFR (Non-African American) 43.5 ml/min; Potassium 4.2 mmol/L (3.5-5.1)
[2021-01-25] MEDS: DORZOLAMIDE/TIMOLOL 22.3/6.8MG/ML 10 ML BTL OPL SCH ×2 (08:10→20:08)
[2021-01-25] MEDS: FOLIC ACID 1 MG TAB PO SCH (08:11)
[2021-01-25] MEDS: PANTOprazole 40 MG TAB PO SCH (08:11)
[2021-01-25] MEDS: PYRIDOXINE HCL 50 MG TAB PO SCH (08:11)
[2021-01-25] MEDS: CYANOCOBALAMIN 500 MCG TABLET (VITAMIN B-12) PO SCH (08:11)
[2021-01-25] MEDS: CHOLECALCIFEROL 1,000 UNITS 25 MCG TAB PO SCH (08:11)
[2021-01-25] MEDS: BRIMONIDINE TARTRATE-P 0.15% 5 ML BTL OP SCH ×2 (08:36→20:09)
--- NOTE | 2021-01-25 09:05 | Hospitalist Progress Note ---
Date of Service January 25, 2021 Assessment & Plan (1) Intertrochanteric fracture of left femur: Plan: Non-displaced intertrochanteric fracture of the left femur s/p mechanical fall at home Ortho consultedappreciate assistance PT/OT consults to be completed following surgery Pain control with Tylenol, oxycodone, Dilaudidof note appears Dilaudid may be too much and would avoid unless absolutely needed. He does note to be more comfortable postoperatively at this time Utilizing JUAN hose and SCDs for now and holding his aspirin and chemoprophylaxis until postop -> Messaged ortho to see about DVT prophylaxis s/p trochanteric nailing today with Dr. Garrett. Unfortunately had some aspiration the operative. And required increased oxygenation and currently 94% on 5 L oxygen mask. --> With associated crackles and rales in the right middle lobe pain stat chest x-ray to evaluate for possible aspiration pneumonia We will moved to telemetry for closer monitoring DuoNebs as needed for shortness of breath We will add incentive spirometer and flutter valve if not already ordered Supplemental oxygen as needed Continue to monitor (2) Acute respiratory failure with hypoxia: Plan: Likely secondary to aspiration and operative. Which could have been worsened by pain control medicine administered before surgery Had been in the upper 80s on room air preop per anesthesia and had been requiring supplemental oxygenation to keep in the 90s. Stat chest x-ray pending Moving to telemetry for closer monitoring Supplemental oxygenation, wean to maintain DuoNebs as needed Incentive spirometer, flutter valve --> CXR with interval prominence of reticular opacities at the right infrahilar region which could represent scattered atelectasis or developing infiltrates. Will start Unasyn --> monitor. Has been inpatient <24hr and no need for gram negative coverage at this time. Consider broadening to Zosyn if no improvement (Also, w/ hx elsadle PE 2019 on anticoag x1 yr -- elevated homocysteine level on therapy and monitoring by PCP) (3) CKD (chronic kidney disease), stage III: Plan: CKD IIIa - SUGAR GRINDER 1.46 on admission normally 1.3 Repeat Cr 1.42 Continue to hold Metformin, avoid nephrotoxic medications Continue LR but at 100 cc/h BMP in a.m. (4) Lumbar spinal stenosis: Plan: Chronic- with some mild radiculopathy down bilateral upper thigh - tiered pain control as above (5) Coronary artery calcification: Plan: Noted on CT scan in 2019 - Normal ECG, no anginal symptoms or exercises intolerance - Continue with simvastatin 20mg - ASA restart when cleared from surgical perspective (had been taking 3x/weekly) (6) Pulmonary embolism, bilateral: Plan: As per HPI- off anticoagulation for ~year - is on folate for hyperhomocystienemia and this is been continued (7) Type 2 diabetes mellitus: Plan: Controlled only with Metformin 500 mg daily A1c most recently only 6.4 in November 2020 Goal <180 - AC/HS checks - notify hospitalist if >180 will add coverage (8) Glaucoma: Plan: Continue home eye drops (9) Dyslipidemia: Plan: Continue simvastatin (10) Hypoxia: Plan: As above Of note bilirubin elevated to 1.7 however patient does have a history of [place] and this has been consistent Plan: dvt proph -- SCD/juan hose while awaiting surgery. would start post-op cielo at discretion of ortho given hx DVT and saddle PE 2018 as well as DVT proph moving to telemetry for closer monitoring as above Admission and Anticipated Discharge Date Admission Date: January 24, 2021 Supervising Physician Co-Signing Physician Notes Attending Attestation - Chart reviewed in detail, care d/w anesthesiologist who provided anesthesia care during the hip operation. Care extensively discussed with STEPHANIE Valderrama. 89 male with L hip fracture s/p repair today. Aspiration event during anesthesia induction. Now with O2 requirement and cxr concerning for aspiration. ACUTE POST-OP RESPIRATORY INSUFFICIENCY 2nd to probable developing aspiration pneumonia. PE in differential but felt unlikely as he had a witnessed aspiration event. Agree with IV unasyn. Supportive care. Telemetry. Labs in am. Of note - 25-OH vit D level was >40 in November; defer on recheck. Beka Cameron MD Subjective Tempted to see patient this morning however patient was already taken to the OR. Discussion with nurse revealed patient had significant discomfort and was received a dose of Dilaudid which he may have been sensitive to and did have emesis x1 preop. Underwent left trochanteric nailing with orthopedics this morning and for anesthesias discussion with supervising provider patient had aspirated during the perioperative period but they were able to get him through surgery. Patient was seen in PACU prior to being transferred back to the third floor. He is with a warming blanket and on an oxygen mask at 5 L nasal cannula to maintain O2 saturations 93%. He denies any shortness of breath at this time but does state he has a cough which has been nonproductive. Discussed obtaining chest x-ray imaging telemetry for close monitoring. She denies any fevers or chills and notes that his temperature is improving with warming blanket. No chest pain, headache, abdominal discomfort, nausea, further vomiting since preop. 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 He notes that he was putting on his sock while standing up and unfortunately had a fall which resulted in his current fracture. He does also note that he has a history of [place] but no issues. Review of Systems Review of Systems: All systems reviewed & are unremarkable except as noted in HPI & below Physical Exam Physical Exam: Well-nourished well-developed in no acute distress. Evaluation in PACU with nonrebreather 5 L to maintain oxygen saturation 93%. Warming blanket present Eyes anicteric, pupils equal and reactive Mucous membranes slightly dry, trachea midline without deviation Respiratoryno acute distress, not tachypneic, crackles appreciated right middle/right lower lobe with associated rhonchi as well as crackles in the left lower lobe. No wheezing appreciated. 93% on 5 L oxygen mask Cardiacregular rate and rhythm, no murmurs rubs or gallops appreciated, calfs nontender to palpation, no edema appreciated GIpositive bowel sounds throughout, soft, nondistended, nontender Murillo draining yellow urine Musculoskeletaldressing to left hip, nontender to palpation. Pulses palpable and sensation intact Psychalert and oriented x3, euthymic Results & Data Results & Data ([facility]) Vital Signs (Past 12 Hours) Vital Signs Temp Pulse Resp BP Pulse Ox 01/25/21 07:30 36.7 C 91 H 16 114/66 90 Laboratory Results 01/25/21 01/25/21 01/25/21 Range/Units 12:23 09:17 07:05 WBC (4.8-10.8) K/uL RBC (4.7-6.1) M/uL Hgb (14.0-18.0) g/dL Hct (42-52) % MCV (80-100) fL MCH (25-34) pg MCHC (32-36) g/dL RDW Std Deviation (36.4-46.3) fL RDW Coeff of Fabiola (11.5-14.5) % Plt Count (130-400) K/uL MPV (7.4-10.4) fL Immature Gran % (Auto) % Neut % (Auto) % Lymph % (Auto) % [place] % (Auto) % Eos % (Auto) % Baso % (Auto) % Neut # (Auto) (1.4-6.5) K/uL Lymph # (Auto) (1.2-3.4) K/uL [place] # (Auto) (0.11-0.59) K/uL Eos # (Auto) (0-0.5) K/uL Baso # (Auto) (0-0.2) K/uL Immature Gran # (Auto) (0.00-0.02) K/uL Sodium 137 (136-145) mmol/L Potassium 4.2 (3.5-5.1) mmol/L Chloride 106 (98-107) mmol/L Carbon Dioxide 22 (21-32) mmol/L Anion Gap 9.0 (3-11) BUN 26 H (7-18) mg/dl Creatinine 1.42 H (0.6-1.4) mg/dl Est Cr Clr Drug Dosing 33.0 ml/min Est GFR ( Amer) 50.4 ml/min Est GFR (Non-Af Amer) 43.5 ml/min BUN/Creatinine Ratio 18.3 (10-20) Glucose 136 H (70-99) mg/dl POC Glucose 157 H 157 H (70-99) mg/dl Calcium 8.9 (8.5-10.1) mg/dl Magnesium 2.0 (1.8-2.4) mg/dl Urine Color Urine Appearance (Clear) Urine pH (4.5-7.5) Ur Specific [place] (1.000-1.030) Urine Protein (Negative) Urine Glucose (UA) (Negative) Urine Ketones (Negative) Urine Blood (Negative) Urine Nitrite (Negative) Urine Bilirubin (Negative) Urine Urobilinogen (Negative) Ur Leukocyte Esterase (Negative) SARS-CoV-2 (PCR) (Negative) 01/25/21 01/25/21 01/24/21 Range/Units 07:05 05:50 20:03 WBC 12.96 H (4.8-10.8) K/uL RBC 4.80 (4.7-6.1) M/uL Hgb 15.1 (14.0-18.0) g/dL Hct 43.2 (42-52) % MCV 90.0 (80-100) fL MCH 31.5 (25-34) pg MCHC 35.0 (32-36) g/dL RDW Std Deviation 43.2 (36.4-46.3) fL RDW Coeff of Fabiola 13.2 (11.5-14.5) % Plt Count 223 (130-400) K/uL MPV 9.8 (7.4-10.4) fL Immature Gran % (Auto) 0.2 % Neut % (Auto) 90.4 % Lymph % (Auto) 6.0 % [place] % (Auto) 2.8 % Eos % (Auto) 0.5 % Baso % (Auto) 0.1 % Neut # (Auto) 11.73 H (1.4-6.5) K/uL Lymph # (Auto) 0.78 L (1.2-3.4) K/uL [place] # (Auto) 0.36 (0.11-0.59) K/uL Eos # (Auto) 0.06 (0-0.5) K/uL Baso # (Auto) 0.01 (0-0.2) K/uL Immature Gran # (Auto) 0.02 (0.00-0.02) K/uL Sodium (136-145) mmol/L Potassium (3.5-5.1) mmol/L Chloride (98-107) mmol/L Carbon Dioxide (21-32) mmol/L Anion Gap (3-11) BUN (7-18) mg/dl Creatinine (0.6-1.4) mg/dl Est Cr Clr Drug Dosing ml/min Est GFR ( Amer) ml/min Est GFR (Non-Af Amer) ml/min BUN/Creatinine Ratio (10-20) Glucose (70-99) mg/dl POC Glucose 142 H 133 H (70-99) mg/dl Calcium (8.5-10.1) mg/dl Magnesium (1.8-2.4) mg/dl Urine Color Urine Appearance (Clear) Urine pH (4.5-7.5) Ur Specific [place] (1.000-1.030) Urine Protein (Negative) Urine Glucose (UA) (Negative) Urine Ketones (Negative) Urine Blood (Negative) Urine Nitrite (Negative) Urine Bilirubin (Negative) Urine Urobilinogen (Negative) Ur Leukocyte Esterase (Negative) SARS-CoV-2 (PCR) (Negative) 01/24/21 01/24/21 01/24/21 Range/Units 18:05 17:15 13:30 WBC (4.8-10.8) K/uL RBC (4.7-6.1) M/uL Hgb (14.0-18.0) g/dL Hct (42-52) % MCV (80-100) fL MCH (25-34) pg MCHC (32-36) g/dL RDW Std Deviation (36.4-46.3) fL RDW Coeff of Fabiola (11.5-14.5) % Plt Count (130-400) K/uL MPV (7.4-10.4) fL Immature Gran % (Auto) % Neut % (Auto) % Lymph % (Auto) % [place] % (Auto) % Eos % (Auto) % Baso % (Auto) % Neut # (Auto) (1.4-6.5) K/uL Lymph # (Auto) (1.2-3.4) K/uL [place] # (Auto) (0.11-0.59) K/uL Eos # (Auto) (0-0.5) K/uL Baso # (Auto) (0-0.2) K/uL Immature Gran # (Auto) (0.00-0.02) K/uL Sodium (136-145) mmol/L Potassium (3.5-5.1) mmol/L Chloride (98-107) mmol/L Carbon Dioxide (21-32) mmol/L Anion Gap (3-11) BUN (7-18) mg/dl Creatinine (0.6-1.4) mg/dl Est Cr Clr Drug Dosing ml/min Est GFR ( Amer) ml/min Est GFR (Non-Af Amer) ml/min BUN/Creatinine Ratio (10-20) Glucose (70-99) mg/dl POC Glucose 115 H (70-99) mg/dl Calcium (8.5-10.1) mg/dl Magnesium (1.8-2.4) mg/dl Urine Color Yellow Urine Appearance Clear (Clear) Urine pH 7.5 (4.5-7.5) Ur Specific [place] 1.012 (1.000-1.030) Urine Protein Negative (Negative) Urine Glucose (UA) Negative (Negative) Urine Ketones Negative (Negative) Urine Blood Negative (Negative) Urine Nitrite Negative (Negative) Urine Bilirubin Negative (Negative) Urine Urobilinogen Negative (Negative) Ur Leukocyte Esterase Negative (Negative) SARS-CoV-2 (PCR) NEGATIVE (Negative) Diagnostic Findings Hip X-Ray 01/25/21 10:30 INTRAOPERATIVE RADIOGRAPHS CLINICAL HISTORY: Open reduction and internal fixation of the left proximal femur. Fluoroscopy time: 71 seconds. FINDINGS: 5 spot fluoroscopic views of the left femur are compared to radiographs dated 01/24/2021. Intertrochanteric and intramedullary nails have been placed transfixing an intertrochanteric fracture. Near-anatomic alignment is maintained. A single cortical lag screw transfixes the intramedullary nail. Overlying soft tissue edema is noted. IMPRESSION: Intraoperative images from open reduction and internal fixation of an intertrochanteric left femoral fracture as above. Electronically signed by: Joe Madrid M.D. 01/25/2021 1:43 PM Chest X-Ray 01/25/21 14:40 XR chest 1V portable CLINICAL HISTORY: aspiration, hypoxia COMPARISON STUDY: January 24, 2021 FINDINGS: No pneumothorax. No pleural effusion. Interval prominence of reticular opacities at the right infrahilar region which could represent scattered atelectasis or developing infiltrates. Cardiomediastinal silhouette is stable. Aorta is tortuous. No significant pulmonary vascular congestion.. Osseous structures: Degenerative changes of the spine. IMPRESSION: 1. Interval prominence of reticular opacities at the right infrahilar region which could represent scattered atelectasis or developing infiltrates. ACT 112: Negative or not required by law. The above report was generated using voice recognition software. It may contain grammatical, syntax or spelling errors. Electronically signed by: Khushboo Chapa DO 01/25/2021 2:57 PM PG Care Time/CCT Total # of Minutes Spent Total Time Spent with Patient: Total time spent is greater than 50% in coordination of care (as documented) at patient's floor/unit and/or counseling patient: Coding Level of Care Code 26860 Subseq Hosp Care Lvl 3 Diagnoses Intertrochanteric fracture of left femur S72.142A CKD (chronic kidney disease), stage III N18.30 Lumbar spinal stenosis M48.062 Neurogenic claudication status: with neurogenic claudication Coronary artery calcification I25.10; I25.84 Pulmonary embolism, bilateral I26.99 Type 2 diabetes mellitus E11.9 Diabetes mellitus complication status: without complication Diabetes mellitus residential insulin use: without intermediate frame tender use Glaucoma H40.9 Dyslipidemia E78.5 Hypoxia R09.02 Acute respiratory failure with hypoxia J96.01 (1) Lumbar spinal stenosis Neurogenic claudication status: with neurogenic claudication Qualified Code(s): M48.062 - Spinal stenosis, lumbar region with neurogenic claudication (2) Type 2 diabetes mellitus Diabetes mellitus complication status: without complication Diabetes mellitus residential insulin use: without residential use Qualified Code(s): E11.9 - Type 2 diabetes mellitus without complications
[2021-01-25] MEDS ORDERED: ATROPINE SULFATE 0.1 MG/ML 10ML SYR IV PRN ×2 (09:49→12:29)
[2021-01-25] MEDS ORDERED: ONDANSETRON INJ 2 MG/ML 2 ML VIAL IV PRN (09:49)
[2021-01-25] MEDS ORDERED: fentaNYL citrate 100 MCG/2 ML VIAL IV PRN ×2 (09:49→12:29)
[2021-01-25] MEDS ORDERED: MIDAZOLAM HCL 1 MG/ML 2ML VIAL ONE (10:07)
[2021-01-25] MEDS ORDERED: fentaNYL citrate 100 MCG/2 ML VIAL ONE (10:07)
[2021-01-25] MEDS ORDERED: PROPOFOL IV EMULSION 10 MG/ML 20 ML VIAL IV ONE (11:32)
[2021-01-25] MEDS ORDERED: LIDOCAINE 2% 2 ML VIAL/AMP(20MG/ML) INFIL ONE (11:32)
[2021-01-25] MEDS ORDERED: SUCCINYLCHOLINE CHLORIDE 20 MG/ML 10 ML VIAL IV ONE (11:33)
[2021-01-25] MEDS ORDERED: ONDANSETRON INJ 2 MG/ML 2 ML VIAL ONE (11:33)
[2021-01-25] MEDS ORDERED: ROCURONIUM BROMIDE 10 MG/ML 5 ML VIAL IV ONE (11:33)
--- NOTE | 2021-01-25 12:08 | Operative Report ---
Post Operative Report Pre & Post Diagnosis Operation Date: 01/25/21 07:50 Pre-Op Diagnosis: Left minimally displaced intertrochanteric hip fracture Post-Op Diagnosis: Left minimally displaced intertrochanteric hip fracture I identified the patient and participated in the time-out.: Yes Procedure Operation Date: 01/25/21 07:50 Actual Procedures p Left Trochanteric Femoral Nail(Left) utilizing a 12 mm diameter intermediate stem troches nail 105 mm troches nail blade with a 40 mm distal locking screw- Bud Garrett DO Surgeon Bud Garrett DO Pomologist Chai BROWN Estimated Blood Loss 10 Findings Consistent with Post-Op Diagnosis Patient presents after having had a fall while trying to put a sock on the sustaining a left intertrochanteric hip fracture minimal to mild displacement Specimens None Drains None Anesthesia Type General Complications none Disposition Accompanied Patient To Recovery: No Disposition: Recovery Room Indications Patient presents with a left hip intertrochanteric fracture status post fall for open reduction total fixation with inotrope nail Description of Procedure After initiation of general anesthesia the patient was placed on the fracture table all bony promises well-padded and protected under fluoroscopic guidance the fracture was reduced anatomic positions both AP and lateral planes after reduction and all positions a 3 cm incision made over the region of the greater trochanter dissection carried down to the tip of the greater trochanter under fluoroscopic guidance and I am guidepin was placed socially the proximal proximal portion of the troches was reamed to accommodate a intermediate troches nail a IM guidewire was placed to the position was checked in both AP and lateral planes under fluoroscopic guidance subsequently the troponin was placed into the intramedullary portion of the femur with the hip fracture reduced karen tomic position both AP and lateral planes subsequently the the plate cannulated screw device was placed being 105 mm measured gave excellent position in the center of the both AP and lateral of the femoral head neck fracture was maintained in anatomic reduction the distal guidewire and distal screw was placed the utilizing standard guide system under fluoroscopic guidance the position of the fracture position of the may was checked in both AP and lateral planes fluoroscopic guidance wound was irrigated cups amounts of sterile saline solution the deep fascia was closed with #1 Vicryl subcu was closed with 2-0 Vicryl skin was closed with skin clips sterile compressive dressings placed the patient was taken to recovery in stable condition please note Chai Brunermer PA was necessary prepping draping retraction position and was necessary for the case I attest to the content of the Intraoperative Record and any orders documented therein. Any exceptions are noted below.
[2021-01-25] MEDS ORDERED: LABETALOL HCL IV 5 MG/ML 20ML IV PRN (12:29)
[2021-01-25] MEDS ORDERED: ePHEDrine sulfate 50 MG/ML AMP IV PRN (12:29)
[2021-01-25] MEDS ORDERED: FLUMAZENIL 0.1 MG/1 ML 10 ML VIAL IV PRN (12:29)
[2021-01-25] MEDS ORDERED: ALBUT/IPRATROP 3MG/0.5MG NEB 3 ML VIAL INH PRN (12:29)
--- NOTE | 2021-01-25 13:44 | Fluoroscopy Report ---
INTRAOPERATIVE RADIOGRAPHS CLINICAL HISTORY: Open reduction and internal fixation of the left proximal femur. Fluoroscopy time: 71 seconds. FINDINGS: 5 spot fluoroscopic views of the left femur are compared to radiographs dated 01/24/2021. In tertrochanteric and intramedullary nails have been placed transfixing an intertrochanteric fracture. Near-anatomic alignment is maintained. A single cortical lag screw transfixes the intramedullary nail . Overlying soft tissue edema is noted. IMPRESSION: Intraoperative images from open reduction and internal fixation of an intertrochanteric l eft femoral fracture as above. Electronically signed by: Joe Madrid M.D. 01/25/2021 1:43 PM
--- NOTE | 2021-01-25 14:20 | Communication Note ---
Date of Service: January 25, 2021 Updated hospitalist regarding patient aspirating upon induction and placement of LMA. Patient with saturations in high 80's preoperatively on RA, now requiring 5L face mask to maintain sats ~93%. Hospitalist agreed with plan to keep patient on pulse ox/telemetry overnight to monitor respiratory status. Arnie Evans D.O.
--- NOTE | 2021-01-25 14:22 | Anesthesiology Progress Note ---
Date of Service January 25, 2021 Anesthesia Post Procedure Vital Signs Vital Signs: Temp Pulse Pulse Resp BP BP BP 01/25/21 13:50 74 18 121/64 01/25/21 13:40 69 18 116/68 01/25/21 13:30 73 18 136/70 01/25/21 13:20 72 20 118/69 01/25/21 13:10 70 19 123/67 01/25/21 13:00 70 16 109/75 01/25/21 12:50 72 19 136/73 01/25/21 12:44 73 20 01/25/21 12:40 76 21 120/80 01/25/21 12:30 77 23 154/88 H 01/25/21 12:20 96.8 F L 82 16 183/103 H 01/25/21 09:11 98.2 F 88 18 117/72 01/25/21 07:30 98.1 F 91 H 16 114/66 01/24/21 16:50 97.9 F 76 20 145/77 H 01/24/21 16:00 73 23 146/78 H 01/24/21 15:31 81 18 161/114 H 01/24/21 15:00 81 29 H 165/119 H 01/24/21 14:30 81 16 Pulse Ox 01/25/21 13:50 93 01/25/21 13:40 91 01/25/21 13:30 92 01/25/21 13:20 93 01/25/21 13:10 92 01/25/21 13:00 92 01/25/21 12:50 92 01/25/21 12:44 89 L 01/25/21 12:40 91 01/25/21 12:30 91 01/25/21 12:20 95 01/25/21 09:11 87 L 01/25/21 07:30 90 01/24/21 16:50 96 01/24/21 16:00 99 01/24/21 15:31 01/24/21 15:00 01/24/21 14:30 Pain Intensity Left Hip: Pain Intensity: 7 Transfer of Care Handoff Completed per policy Notes Mental Status: alert / awake / arousable and participated in evaluation Patient Amnestic to Procedure: Yes Nausea / Vomiting: adequately controlled Pain: adequately controlled Airway Patency, RR, SpO2: stable & adequate (Requiring 5L face mask to maintain adequate oxygenation, discussed with hospitalist to admit for pulse ox/telemetry monitoring overnight) BP & HR: stable & adequate Hydration State: stable & adequate Anesthetic Complications: no major complications apparent and Pt Satisfied with anesthetic care
--- NOTE | 2021-01-25 14:58 | XRay Report ---
XR chest 1V portable CLINICAL HISTORY: aspiration, hypoxia COMPARISON STUDY: January 24, 2021 FINDINGS: No pneumothorax. No pleural effusion. Interval prominence of reticular opacities at the right infrahilar region which could represent scatt ered atelectasis or developing infiltrates. Cardiomediastinal silhouette is stable. Aorta is tortuous. No significant pulmonary vascular congestion.. Osseous structures: Degenerative changes of the spine. IMPRESSION: 1. Interval prominence of reticular opacities at the right infrahilar region which could represent s cattered atelectasis or developing infiltrates. ACT 112: Negative or not required by law. The above report was generated using voice recognition software. It may contain grammatical, syntax o r spelling errors. Electronically signed by: Khushboo Chapa DO 01/25/2021 2:57 PM
[2021-01-25] MEDS: AMPICILLIN/SULBACTAM SOD 1,500 MG in 0.9 % SODIUM CHLORIDE 100 ML IV SCH ×2 (15:27→20:37)
--- NOTE | 2021-01-25 16:43 | Electrocardiogram Report ---
Test Reason : Blood Pressure : / mmHG Vent. Rate : 072 BPM Atrial Rate : 072 BPM P-R Int : 194 ms QRS Dur : 090 ms QT Int : 400 ms P-R-T Axes : 055 050 042 degrees QTc Int : 438 ms Normal sinus rhythm Normal ECG No previous ECGs available Confirmed by Deny Neville ([id number]) on 01/25/2021 4:42:42 PM Referred By: REFERRED SELF Confirmed By:Deny Neville
[2021-01-25] MEDS ORDERED: oxyCODONE HCL IR 5 MG TAB (IMMEDIATE RELEASE) PO PRN (18:29)
[2021-01-25] MEDS ORDERED: SODIUM CHLORIDE 0.9% 1000ML 1,000 ML IV SCH (18:29)
[2021-01-25] MEDS ORDERED: ALBUT/IPRATROP 3MG/0.5MG NEB 3 ML VIAL NEB PRN (18:29)
[2021-01-25] MEDS: ENOXAPARIN INJ 30 MG/0.3 ML SYR SQ SCH (20:08)
[2021-01-25] MEDS: SIMVASTATIN 20 MG TAB PO SCH (20:08)
[2021-01-26] MEDS: AMPICILLIN/SULBACTAM SOD 1,500 MG in 0.9 % SODIUM CHLORIDE 100 ML IV SCH ×4 (04:12→21:28)
--- NOTE | 2021-01-26 06:22 | Communication Note ---
Date of Service: January 26, 2021 Overnight the patient had a PVR > 350 and he was straight cath'd. He again in the morning had a post void residual > 350 and a myers was placed.
[2021-01-26 06:31] LABS: Basophils # (auto) 0.01 K/uL (0-0.2); Basophils % (auto) 0.1 %; Eosinophils % (auto) 0.6 %; Hematocrit (blood only) 39.2 % (42-52); Hemoglobin 13.2 g/dL (14.0-18.0); Immature Granulocytes # (auto) 0.05 K/uL (0.00-0.02); Immature Granulocytes % (auto) 0.3 %; Lymphocytes # (auto) 1.71 K/uL (1.2-3.4); Lymphocytes % (auto) 10.8 %; Mean Corpuscular Hemoglobin 31.4 pg (25-34); Mean Corpuscular Hgb Conc 33.7 g/dL (32-36); Mean Corpuscular Volume 93.3 fL (80-100); Mean Platelet Volume 10.1 fL (7.4-10.4); Monocytes # (auto) 1.12 K/uL (0.11-0.59); Monocytes % (auto) 7.1 %; Neutrophils # (auto) 12.83 K/uL (1.4-6.5); Neutrophils % (auto) 81.1 %; Platelet Count 206 K/uL (130-400); RDW Coefficient of Variation 13.6 % (11.5-14.5); RDW Standard Deviation 46.5 fL (36.4-46.3); White Blood Count 15.82 K/uL (4.8-10.8)
[2021-01-26 06:58] LABS: BUN Creatinine Ratio 18.6 (10-20); Calcium 8.6 mg/dl (8.5-10.1); Creatinine Clr Calc Pharmacy 36.9 ml/min; Est GFR (African American) 43.3 ml/min; Est GFR (Non-African American) 37.4 ml/min
[2021-01-26] MEDS ORDERED: METOPROLOL TARTRATE 1 MG/ML VIAL IV STA ×2 (07:39→08:03)
[2021-01-26] MEDS: CHOLECALCIFEROL 1,000 UNITS 25 MCG TAB PO SCH (07:52)
[2021-01-26] MEDS: FOLIC ACID 1 MG TAB PO SCH (07:53)
[2021-01-26] MEDS: PANTOprazole 40 MG TAB PO SCH (07:53)
[2021-01-26] MEDS: CYANOCOBALAMIN 500 MCG TABLET (VITAMIN B-12) PO SCH (07:53)
[2021-01-26] MEDS: PYRIDOXINE HCL 50 MG TAB PO SCH (07:53)
[2021-01-26] MEDS: DORZOLAMIDE/TIMOLOL 22.3/6.8MG/ML 10 ML BTL OPL SCH ×2 (07:54→20:04)
[2021-01-26] MEDS: BRIMONIDINE TARTRATE-P 0.15% 5 ML BTL OP SCH ×2 (07:54→20:03)
[2021-01-26] MEDS ORDERED: SODIUM CHLORIDE 0.9% 1000ML 1,000 ML IV SCH (08:00)
[2021-01-26] MEDS ORDERED: SODIUM CHLORIDE 0.9% 1000ML 250 ML IV ONE (08:16)
--- NOTE | 2021-01-26 08:19 | Hospitalist Progress Note ---
Date of Service January 26, 2021 Assessment & Plan (1) Intertrochanteric fracture of left femur: Plan: Non-displaced intertrochanteric fracture of the left femur s/p mechanical fall at home Ortho consultedappreciate assistance PT/OT consults to be completed following surgery Pain control with Tylenol, oxycodone, Dilaudidof note appears Dilaudid may be too much and would avoid unless absolutely needed. He does note to be more comfortable postoperatively at this time Utilizing JUAN mcpherson and SCDs for now and holding his aspirin and chemoprophylaxis until postop -> Messaged ortho to see about DVT prophylaxis -- started Lovenox SQ 01/25 POD#1 s/p trochanteric nailing today with Dr. Garrett. Unfortunately had some aspiration the operative and required increased oxygenation and 94% on 5 L oxygen mask--> currently 92% on 3L NC --> With associated crackles and rales in the right middle lobe pain stat chest x-ray to evaluate for possible aspiration pneumonia and was started on Unasyn Acute Respiratory Failure with Hypoxia (secondary to aspiration as well as new onset afib) WBC 15.8k--> 14.7K, afebrile Continue Unasyn for now Duonebs changed to CARLOS for today given wheezing --> change to prn Continue flutter valve, incentive spirometer Sputum cx pending Moved to telemetry for closer monitoring --> flipped into afib this morning around 7am with rats 130-150s high as 170bpm. Hgb stable but did drop -- acute blood loss from surgery as well as dilutional from IVF (was also given dose lasix IV this morning and did have myers placed overnight for urinary retention) --> Given lopressor 5mg then given total 15mg IV Cardizem. Continued afib, cardiology consulted Additional metoprolol 5mg IV every hour until HR <120bpm then place on oral for contro, then would initiate oral metoprolol as well, start with 25 mg p.o. every 6 hours (with hold orders for systolic blood pressure less than 90 mmHg or heart rate less than 80 bpm Recs for Xarelto but can wait 48 hours If becomes hypotensive SBP <85 could use esmolol IV as well as digoxin IV 0.125mcg Thankfully patient currently asymptomatic from such ECHO with RV dilation but suspected due to prior saddle PE per cardiology (on consult) Continue to monitor on med/tele --> need for tx PCU if need for gtt at any point Supplemental O2 as needed (2) Atrial fibrillation with RVR: Plan: new onset this morning rates 130-150s, up to 170s Lopressor IV given, then cardizem as above Cardiology consulted -- lopressor IV 5mg Q1h until HR <120bpm Improving to 130s this afternoon but still elevated and will continue lopressor Q1H -- current BP 92/53. May need to switch to esmolol if BP drops but will continue current course. Digoxin 0.125mg IV if needed if SBP <85 (3) Acute respiratory failure with hypoxia: Plan: Likely secondary to aspiration and operative. Which could have been worsened by pain control medicine administered before surgery Had been in the upper 80s on room air preop per anesthesia and had been requiring supplemental oxygenation to keep in the 90s. Stat chest x-ray with opacities (congestion today) Had been down to 2L NC but then flipped nto afib with RVR this morning which has worsened congestion/etc as above Lasix x1 on 3L currently -- supplemental O2 as needed Duonebs scheduled but will change back to prn Incentive spirometer, flutter valve Continue Unasyn for now. Had been inpatient <24hr and no need for gram negative coverage at this time. 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 IVF since discontinued Myers placed this morning for urinary retention --> monitor BMP in AM Continue to hold Metformin, avoid nephrotoxic medications (5) Lumbar spinal stenosis: Plan: Chronic- with some mild radiculopathy down bilateral upper thigh Tiered pain control as above (6) Coronary artery calcification: Plan: Noted on CT scan in 2019 - Normal ECG, no anginal symptoms or exercises intolerance - Continue with simvastatin 20mg - ASA restart when cleared from surgical perspective (had been taking 3x/weekly) Plans to start Xarelto for afib as above so could d/c asa? (7) Pulmonary embolism, bilateral: Plan: As per HPI- off anticoagulation for ~year - is on folate for hyperhomocystienemia and this is been continued Repeat echo w RV dilation but felt to be related to resolved saddle PE. 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 I agree w/ the mchugh components of her documentation. 89yo male POD #1 s/p left hip fracture ORIF. Post-operative acute pulmonary insufficiency 2nd to aspiration event. Unasyn started. This am developed rapid a.fib. Agree with management recommendations by Ms Valderrama and cardiology for the a.fib. Echo findings noted. 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 Other? Continue supportive care for suspected aspiration pneumonia including abx. Serial labs. Beka Cameron MD Subjective Eval this morning. Flipped into afib around 720am. Rates running 130-150s but did get as high as 170 for a brief moment. Patient denied any increased shortness of breath or chest pain. Does have some tightness and notes he has been coughing up junk with the flutter valve. Unsure of color but per RN who saw last evening sputum stated greenish in color. Continuing current abx but discussed possible need to switch to Zosyn if no improvement. Also obtaining ECHO to kaylaal R bettye as he has hx saddle PE and was on Xarelto x1 year in 2019 for such which had resolved. No calf edema or tenderness.. Myers placed last night for retention and will maintain for now. Giving dose of lasix for volume overload which may also be contributing to low BP. Had already been given 5mg Lopressor and just received 5mg cardizem and monitoring response but discussed may need to move to PCU for gtt but will monitor response for now. No fever, chills, abd pain, nausea, vomtiing. Passing lots of gas but no BM. Pain controlled with ordered medications. Review of Systems Review of Systems: All systems reviewed & are unremarkable except as noted in HPI & below Physical Exam Physical Exam: Well-nourished well-developed in no acute distress. resting comfortable in bed Eyes anicteric, pupils equal and reactive Mucous membranes slightly dry, trachea midline without deviation Respiratoryno acute distress, not tachypneic, scattered rhonchi and end e xpiratory wheezing. on 2L NC Cardiacirregularly irregular 157bpm, no m/r/g, calves non-tender, no edema GIpositive bowel sounds throughout, soft, nondistended, nontender Myers draining yellow urine Musculoskeletaldressing to left hip, nontender to palpation. Pulses palpable and sensation intact Psychalert and oriented x3, euthymic Results & Data Results & Data ([facility]) Vital Signs (Past 12 Hours) Vital Signs Temp Pulse Pulse Resp BP BP Pulse Ox 01/26/21 07:51 154 H 101/50 L 01/26/21 02:59 36.7 C 68 18 113/67 90 01/25/21 23:19 36.6 C 89 18 101/61 91 01/25/21 22:19 86 01/25/21 21:35 80 Laboratory Results 01/26/21 01/26/21 01/26/21 Range/Units 14:55 14:55 11:39 WBC 14.77 H (4.8-10.8) K/uL RBC 4.03 L (4.7-6.1) M/uL Hgb 12.6 L (14.0-18.0) g/dL Hct 36.7 L (42-52) % MCV 91.1 (80-100) fL MCH 31.3 (25-34) pg MCHC 34.3 (32-36) g/dL RDW Std Deviation 44.5 (36.4-46.3) fL RDW Coeff of Fabiola 13.5 (11.5-14.5) % Plt Count 181 (130-400) K/uL MPV 9.8 (7.4-10.4) fL Immature Gran % (Auto) 0.2 % Neut % (Auto) 79.5 % Lymph % (Auto) 10.8 % Mclean % (Auto) 7.9 % Eos % (Auto) 1.5 % Baso % (Auto) 0.1 % Neut # (Auto) 11.75 H (1.4-6.5) K/uL Lymph # (Auto) 1.59 (1.2-3.4) K/uL Mclean # (Auto) 1.17 H (0.11-0.59) K/uL Eos # (Auto) 0.22 (0-0.5) K/uL Baso # (Auto) 0.01 (0-0.2) K/uL Immature Gran # (Auto) 0.03 H (0.00-0.02) K/uL Sodium 134 L (136-145) mmol/L Potassium 4.1 (3.5-5.1) mmol/L Chloride 104 (98-107) mmol/L Carbon Dioxide 24 (21-32) mmol/L Anion Gap 6.0 (3-11) BUN 34 H (7-18) mg/dl Creatinine 1.79 H (0.6-1.4) mg/dl Est Cr Clr Drug Dosing 33.2 ml/min Est GFR ( Amer) 38.1 ml/min Est GFR (Non-Af Amer) 32.9 ml/min BUN/Creatinine Ratio 19.1 (10-20) Glucose 126 H (70-99) mg/dl POC Glucose 174 H (70-99) mg/dl Calcium 8.5 (8.5-10.1) mg/dl Magnesium (1.8-2.4) mg/dl TSH (0.300-4.500) uIu/ml 01/26/21 01/26/21 01/26/21 Range/Units 07:29 05:59 05:59 WBC (4.8-10.8) K/uL RBC (4.7-6.1) M/uL Hgb (14.0-18.0) g/dL Hct (42-52) % MCV (80-100) fL MCH (25-34) pg MCHC (32-36) g/dL RDW Std Deviation (36.4-46.3) fL RDW Coeff of Fabiola (11.5-14.5) % Plt Count (130-400) K/uL MPV (7.4-10.4) fL Immature Gran % (Auto) % Neut % (Auto) % Lymph % (Auto) % Mclean % (Auto) % Eos % (Auto) % Baso % (Auto) % Neut # (Auto) (1.4-6.5) K/uL Lymph # (Auto) (1.2-3.4) K/uL Mclean # (Auto) (0.11-0.59) K/uL Eos # (Auto) (0-0.5) K/uL Baso # (Auto) (0-0.2) K/uL Immature Gran # (Auto) (0.00-0.02) K/uL Sodium 136 (136-145) mmol/L Potassium 4.0 (3.5-5.1) mmol/L Chloride 105 (98-107) mmol/L Carbon Dioxide 26 (21-32) mmol/L Anion Gap 5.0 (3-11) BUN 30 H (7-18) mg/dl Creatinine 1.61 H (0.6-1.4) mg/dl Est Cr Clr Drug Dosing 36.9 ml/min Est GFR ( Amer) 43.3 ml/min Est GFR (Non-Af Amer) 37.4 ml/min BUN/Creatinine Ratio 18.6 (10-20) Glucose 111 H (70-99) mg/dl POC Glucose 104 H (70-99) mg/dl Calcium 8.6 (8.5-10.1) mg/dl Magnesium 2.0 (1.8-2.4) mg/dl TSH 1.310 (0.300-4.500) uIu/ml 01/26/21 01/25/21 Range/Units 05:59 20:10 WBC 15.82 H (4.8-10.8) K/uL RBC 4.20 L (4.7-6.1) M/uL Hgb 13.2 L (14.0-18.0) g/dL Hct 39.2 L (42-52) % MCV 93.3 (80-100) fL MCH 31.4 (25-34) pg MCHC 33.7 (32-36) g/dL RDW Std Deviation 46.5 H (36.4-46.3) fL RDW Coeff of Fabiola 13.6 (11.5-14.5) % Plt Count 206 (130-400) K/uL MPV 10.1 (7.4-10.4) fL Immature Gran % (Auto) 0.3 % Neut % (Auto) 81.1 % Lymph % (Auto) 10.8 % Mclean % (Auto) 7.1 % Eos % (Auto) 0.6 % Baso % (Auto) 0.1 % Neut # (Auto) 12.83 H (1.4-6.5) K/uL Lymph # (Auto) 1.71 (1.2-3.4) K/uL Mclean # (Auto) 1.12 H (0.11-0.59) K/uL Eos # (Auto) 0.10 (0-0.5) K/uL Baso # (Auto) 0.01 (0-0.2) K/uL Immature Gran # (Auto) 0.05 H (0.00-0.02) K/uL Sodium (136-145) mmol/L Potassium (3.5-5.1) mmol/L Chloride (98-107) mmol/L Carbon Dioxide (21-32) mmol/L Anion Gap (3-11) BUN (7-18) mg/dl Creatinine (0.6-1.4) mg/dl Est Cr Clr Drug Dosing ml/min Est GFR ( Amer) ml/min Est GFR (Non-Af Amer) ml/min BUN/Creatinine Ratio (10-20) Glucose (70-99) mg/dl POC Glucose 175 H (70-99) mg/dl Calcium (8.5-10.1) mg/dl Magnesium (1.8-2.4) mg/dl TSH (0.300-4.500) uIu/ml Diagnostic Findings Chest X-Ray 01/26/21 07:55 XR chest 1V portable INDICATION: MN ^f/u hypoxia, eval for volume overload. TECHNIQUE: Single frontal radiograph of the chest was obtained. Comparison: Comparison is made to chest one view 01/25/2021 FINDINGS: No lines and tubes are seen. The cardiomediastinal silhouette is normal. Lungs are underinflated. There is cephalization of the vasculature and Chris B lines noted. No evidence of pleural effusion or pneumothorax. IMPRESSION: Moderate pulmonary edema, increased from prior exam. ACT 112: Negative or not required by law. Electronically signed by: Demetri Beckham M.D. 01/26/2021 8:31 AM PG Care Time/CCT Total # of Minutes Spent Total Time Spent with Patient: Total time spent is greater than 50% in coordination of care (as documented) at patient's floor/unit and/or counseling patient: Coding Level of Care Code 23204 Subseq Hosp Care Lvl 3 Diagnoses Intertrochanteric fracture of left femur S72.142A Acute respiratory failure with hypoxia J96.01 CKD (chronic kidney disease), stage III N18.30 Lumbar spinal stenosis M48.062 Neurogenic claudication status: with neurogenic claudication Coronary artery calcification I25.10; I25.84 Pulmonary embolism, bilateral I26.99 Type 2 diabetes mellitus E11.9 Diabetes mellitus complication status: without complication Diabetes mellitus extermination supervisor insulin use: without extermination supervisor use Glaucoma H40.9 Dyslipidemia E78.5 Hypoxia R09.02 Atrial fibrillation with RVR I48.91 (1) Lumbar spinal stenosis Neurogenic claudication status: with neurogenic claudication Qualified Code(s): M48.062 - Spinal stenosis, lumbar region with neurogenic claudication (2) Type 2 diabetes mellitus Diabetes mellitus complication status: without complication Diabetes mellitus extermination supervisor insulin use: without extermination supervisor use Qualified Code(s): E11.9 - Type 2 diabetes mellitus without complications
--- NOTE | 2021-01-26 08:32 | XRay Report ---
XR chest 1V portable INDICATION: MN ^f/u hypoxia, eval for volume overload. TECHNIQUE: Single frontal radiograph of the chest was obtained. Comparison: Comparison is made to chest one view 01/25/2021 FINDINGS: No lines and tubes are seen. The cardiomediastinal silhouette is normal. Lungs are underinflated. The re is cephalization of the vasculature and Chris B lines noted. No evidence of pleural effusion or p neumothorax. IMPRESSION: Moderate pulmonary edema, increased from prior exam. ACT 112: Negative or not required by law. Electronically signed by: Demetri Beckham M.D. 01/26/2021 8:31 AM
[2021-01-26] MEDS ORDERED: dilTIAZem HCl 5 MG/ML 5 ML VIAL IV STA ×2 (09:04→11:26)
[2021-01-26] MEDS ORDERED: FUROSEMIDE 20 MG in SYRINGE 0 ML IV ONE (09:30)
--- NOTE | 2021-01-26 10:07 | Orthopedic Progress Note ---
Date of Service January 26, 2021 Assessment & Plan (1) Intertrochanteric fracture of left femur: Plan: POD 1 s/p Left TFN PT/OT. WBAT when ok with Med service. DVT prophylaxis - Enoxaparin daily, SCD's Pain management as written. New onset Afib and Pulm Edema as per AM CXR. As per hospitalist team. Admission and Anticipated Discharge Date Admission Date: January 24, 2021 Subjective POD 1 Pt sitting up in bed. States he feels he's not doing as well as he was post op. Pt's rhythm went into AFib this AM. Hospitalist service aware and treating. Currently he denies SOB,CP. Pain controlled in the LLE. Coughing some "junk" this AM. No other complaints. Physical Exam Physical Exam: Dressings C/D/I. Minimal swelling. No erythema around surgical area. Calves soft,NT. NV intact. Toes mobile. Results & Data ([facility]) Vital Signs (Past 12 Hours) Vital Signs Temp Pulse Pulse Pulse Resp BP BP 01/26/21 08:58 146 H 92/51 L 01/26/21 08:15 152 H 93/50 L 01/26/21 08:00 91 H 01/26/21 07:51 154 H 101/50 L 01/26/21 02:59 36.7 C 68 18 113/67 01/25/21 23:19 36.6 C 89 18 101/61 01/25/21 22:19 86 Pulse Ox 01/26/21 08:58 01/26/21 08:15 01/26/21 08:00 01/26/21 07:51 01/26/21 02:59 90 01/25/21 23:19 91 01/25/21 22:19 Laboratory Results Laboratory Results WBC 15.82 K/uL (4.8-10.8) H 01/26/21 05:59 RBC 4.20 M/uL (4.7-6.1) L 01/26/21 05:59 Hgb 13.2 g/dL (14.0-18.0) L 01/26/21 05:59 Hct 39.2 % (42-52) L 01/26/21 05:59 MCV 93.3 fL (80-100) 01/26/21 05:59 MCH 31.4 pg (25-34) 01/26/21 05:59 MCHC 33.7 g/dL (32-36) 01/26/21 05:59 RDW Std Deviation 46.5 fL (36.4-46.3) H 01/26/21 05:59 RDW Coeff of Fabiola 13.6 % (11.5-14.5) 01/26/21 05:59 Plt Count 206 K/uL (130-400) 01/26/21 05:59 MPV 10.1 fL (7.4-10.4) 01/26/21 05:59 Immature Gran % (Auto) 0.3 % 01/26/21 05:59 Neut % (Auto) 81.1 % 01/26/21 05:59 Lymph % (Auto) 10.8 % 01/26/21 05:59 [place] % (Auto) 7.1 % 01/26/21 05:59 Eos % (Auto) 0.6 % 01/26/21 05:59 Baso % (Auto) 0.1 % 01/26/21 05:59 Neut # (Auto) 12.83 K/uL (1.4-6.5) H 01/26/21 05:59 Lymph # (Auto) 1.71 K/uL (1.2-3.4) 01/26/21 05:59 Harrison # (Auto) 1.12 K/uL (0.11-0.59) H 01/26/21 05:59 Eos # (Auto) 0.10 K/uL (0-0.5) 01/26/21 05:59 Baso # (Auto) 0.01 K/uL (0-0.2) 01/26/21 05:59 Immature Gran # (Auto) 0.05 K/uL (0.00-0.02) H 01/26/21 05:59 PT 10.3 Seconds (9.0-12.0) 01/24/21 13:17 INR 1.0 (0.9-1.1) 01/24/21 13:17 APTT 25.6 Seconds (21.0-31.0) 01/24/21 13:17 PTT Ratio 1.0 01/24/21 13:17 Sodium 136 mmol/L (136-145) 01/26/21 05:59 Potassium 4.0 mmol/L (3.5-5.1) 01/26/21 05:59 Chloride 105 mmol/L (98-107) 01/26/21 05:59 Carbon Dioxide 26 mmol/L (21-32) 01/26/21 05:59 Anion Gap 5.0 (3-11) 01/26/21 05:59 BUN 30 mg/dl (7-18) H 01/26/21 05:59 Creatinine 1.61 mg/dl (0.6-1.4) H 01/26/21 05:59 Est Cr Clr Drug Dosing 36.9 ml/min 01/26/21 05:59 Est GFR ( Amer) 43.3 ml/min 01/26/21 05:59 Est GFR (Non-Af Amer) 37.4 ml/min 01/26/21 05:59 BUN/Creatinine Ratio 18.6 (10-20) 01/26/21 05:59 Glucose 111 mg/dl (70-99) H 01/26/21 05:59 POC Glucose 104 mg/dl (70-99) H 01/26/21 07:29 Calcium 8.6 mg/dl (8.5-10.1) 01/26/21 05:59 Magnesium 2.0 mg/dl (1.8-2.4) 01/26/21 05:59 Total Bilirubin 1.7 mg/dl (0.2-1) H 01/24/21 13:17 AST 33 U/L (15-37) 01/24/21 13:17 ALT 48 U/L (12-78) 01/24/21 13:17 Alkaline Phosphatase 80 U/L (45-117) 01/24/21 13:17 Total Protein 7.7 gm/dl (6.4-8.2) 01/24/21 13:17 Albumin 4.0 gm/dl (3.4-5.0) 01/24/21 13:17 Globulin 3.7 gm/dl (2.5-4.0) 01/24/21 13:17 Albumin/Globulin Ratio 1.1 (0.9-2) 01/24/21 13:17 TSH 1.310 uIu/ml (0.300-4.500) 01/26/21 05:59 Urine Color Yellow 01/24/21 18:05 Urine Appearance Clear (Clear) 01/24/21 18:05 Urine pH 7.5 (4.5-7.5) 01/24/21 18:05 Ur Specific [place] 1.012 (1.000-1.030) 01/24/21 18:05 Urine Protein Negative (Negative) 01/24/21 18:05 Urine Glucose (UA) Negative (Negative) 01/24/21 18:05 Urine Ketones Negative (Negative) 01/24/21 18:05 Urine Blood Negative (Negative) 01/24/21 18:05 Urine Nitrite Negative (Negative) 01/24/21 18:05 Urine Bilirubin Negative (Negative) 01/24/21 18:05 Urine Urobilinogen Negative (Negative) 01/24/21 18:05 Ur Leukocyte Esterase Negative (Negative) 01/24/21 18:05 COVID-19 Eval Order Covid19 at [facility] 01/24/21 13:30 SARS-CoV-2 (PCR) NEGATIVE (Negative) 01/24/21 13:30 Blood Type A Positive 01/24/21 13:49 Antibody Screen NEGATIVE 01/24/21 13:49 Hip X-Ray 01/25/21 10:30 INTRAOPERATIVE RADIOGRAPHS CLINICAL HISTORY: Open reduction and internal fixation of the left proximal femur. Fluoroscopy time: 71 seconds. FINDINGS: 5 spot fluoroscopic views of the left femur are compared to radiographs dated 01/24/2021. Intertrochanteric and intramedullary nails have been placed transfixing an intertrochanteric fracture. Near-anatomic alignment is maintained. A single cortical lag screw transfixes the intramedullary nail. Overlying soft tissue edema is noted. IMPRESSION: Intraoperative images from open reduction and internal fixation of an intertrochanteric left femoral fracture as above. Electronically signed by: Joe Madrid M.D. 01/25/2021 1:43 PM Chest X-Ray 01/26/21 07:55 XR chest 1V portable INDICATION: MN ^f/u hypoxia, eval for volume overload. TECHNIQUE: Single frontal radiograph of the chest was obtained. Comparison: Comparison is made to chest one view 01/25/2021 FINDINGS: No lines and tubes are seen. The cardiomediastinal silhouette is normal. Lungs are underinflated. There is cephalization of the vasculature and Chris B lines noted. No evidence of pleural effusion or pneumothorax. IMPRESSION: Moderate pulmonary edema, increased from prior exam. ACT 112: Negative or not required by law. Electronically signed by: Demetri Beckham M.D. 01/26/2021 8:31 AM
[2021-01-26] MEDS: ALBUT/IPRATROP 3MG/0.5MG NEB 3 ML VIAL NEB SCH ×2 (10:31→15:31)
--- NOTE | 2021-01-26 10:36 | XCELERA ---
[id number] \\[id number]
[2021-01-26] MEDS ORDERED: DIGOXIN 250 MCG in SYRINGE 9 ML IV ONE (11:00)
--- NOTE | 2021-01-26 12:13 | Cardiology Consultation ---
Date of Consultation January 26, 2021 Assessment & Plan (1) Atrial fibrillation with RVR: New onset atrial fibrillation with rapid ventricular response in the context of postoperative adrenergic state with some mild to moderate respiratory issues. Fortunately, the patient is tolerating this well with no obvious symptoms. Recommend metoprolol 5 mg IV every hour until ventricular rate is less than 120 bpm or systolic blood pressure drops below 85 mmHg. If limited by BP, could try additional digoxin (0.125 mg IV), but may need to switch to esmolol infusion as short acting beta-haley which can be titrated to avoid hypotension. Would initiate oral metoprolol as well, start with 25 mg p.o. every 6 hours (with hold orders for systolic blood pressure less than 90 mmHg or heart rate less than 80 bpm). In regards to anticoagulation, he had previously been on Xarelto (for pulmonary embolism), could utilize this but would reduce dose to 15 mg daily given his GFR less than 50 mL/min. (2) Hypoxia: Appears to be a mixed process with productive cough which is being treated with antibiotics. Chest x-ray did show some pulmonary edema but he subsequently received furosemide. He appears euvolemic currently, would hold on further diuretics for now to avoid hypotension or acute on chronic renal insufficiency. If he develops increased dyspnea, could administer furosemide if BP is adequate. (3) Closed fracture of left hip: Status post operative repair 01/25/2021. (4) CKD (chronic kidney disease), stage III: Adjust meds accordingly. History of Present Illness Reason for Consultation: New onset A. 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 He is tolerating the rapid rate very well, he denies any chest pain, dyspnea at rest, or subjective palpitations. He has had a cough since yesterday and this is persisting, occasionally productive of discolored sputum. Chest x-ray yesterday showed potential infiltrates, today more consistent with mild to moderate pulmonary edema. He is on supplemental oxygen. No lightheadedness, presyncope, or syncope. Aside from cough and currently well-controlled left hip pain status post fracture, no other somatic complaints at the time of my evaluation this morning. Allergies Allergy/AdvReac Type Severity Reaction Status Date / Time Sulfa (Sulfonamide Allergy Intermediate HIVES Verified 01/24/21 13:54 Antibiotics) Home Medications Medication Instructions Recorded Confirmed Type cholecalciferol (vitamin D3) 25 2,000 units PO DAILY cap 11/14/18 01/24/21 History mcg (1,000 unit) capsule omeprazole 20 mg tablet,delayed 20 mg PO DAILY #30 tab 04/08/19 01/24/21 Rx release OneTouch Ultra Blue Test Strip #100 ea NS 09/22/19 12/03/20 Rx (blood sugar diagnostic) lancets 33 gauge (OneTouch Delica #100 ea 04/06/20 12/03/20 Rx Plus Lancet) cyanocobalamin (vitamin B-12) 1,000 mcg PO DAILY #30 cap 04/16/20 01/24/21 Rx 1,000 mcg capsule folic acid 1 mg tablet 1 mg PO DAILY #30 tab 04/16/20 01/24/21 Rx pyridoxine (vitamin B6) 50 mg 50 mg PO DAILY #30 tab 04/16/20 01/24/21 Rx tablet metformin 500 mg tablet 500 mg PO QPM #90 tab 11/16/20 01/24/21 Rx brimonidine 0.1 % eye drops 1 drp OPL BID 01/24/21 01/24/21 History (Alphagan P) dorzolamide 22.3 mg-timolol 6.8 1 drp OPL BID 01/24/21 01/24/21 History mg/mL eye drops simvastatin 20 mg tablet 20 mg PO QPM 01/24/21 01/24/21 History Patient History Medical History (Updated 01/26/21 @ 12:49 by Deny Neville MD) Acquired spondylolisthesis of lumbosacral region Basal cell carcinoma of skin REMOVED ON LEFT EAR (GRAFTING DONE) Benign colonic polyp Degenerative disc disease Dyslipidemia Gastroesophageal reflux disease without esophagitis GERD (gastroesophageal reflux disease) Glaucoma Incidental lung nodule "BENIGN" Irregular heart beat NO CARDS Irritable bowel syndrome with diarrhea Pulmonary embolism, bilateral (2019) Squamous cell skin cancer Type 2 diabetes mellitus Vitamin D deficiency Surgical History History of appendectomy History of cataract surgery RT History of cholecystectomy History of colonoscopy History of esophagogastroduodenoscopy (EGD) History of tonsillectomy History of tooth extraction History of trabeculectomy RT EYE Family History Mother Alzheimer disease Cerebral atherosclerosis Stroke Dementia Father Colon cancer Peritonitis Family hx of colon cancer Colorectal cancer Myocardial infarction Brother Colon cancer Family hx of colon cancer Colorectal cancer Pulmonary embolism Sister Cancer of mediastinum Grandmother Lymphoma Denies family history of Ovarian cancer Prostate cancer Diabetes Breast cancer Lung cancer Social History Smoking Status: Never smoker Second Hand Exposure: No; Hx Alcohol Use: Yes Alcohol type: wine and hard liquor Alcohol Intake Freque ncy: Monthly or Less Hx Substance Use: No Preferred Language: Persian Communication Ability: Effective Visual Impairment: Limited Hearing Ability: Use of Hearing Aid 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 Afebrile. BP low normal. Pulse 150 bpm and irregular. Skin: no ecchymoses or generalized lesions. HEENT: unremarkable. Neck: Jugular venous pulse at the clavicle at 90 degrees, no carotid bruits. Lungs: Mildly decreased breath sounds with scattered rhonchi throughout, no wheezing or obvious crackles. No accessory muscle use. Cardiac: Irregular/tachycardic rhythm, 2/6 apical holosystolic murmur, no diastolic murmur or gallop. Abdomen: benign. Extremities: no edema, brisk radial and posterior tibial pulses. Neurologic: normal affect and conversation, nonfocal. Results & Data ([facility]) Laboratory Results Hemoglobin 13.2 with white count 15.82 and normal platelet count. Normal electrolytes, BUN 30, creatinine 1.6. Diagnostic Findings ECG on admission showed sinus rhythm at 72 bpm and was completely unremarkable. Echocardiogram showed EF 65 to 70% with mild LVH, mild mitral regurgitation and mild tricuspid regurgitation with moderate pulmonary hypertension. No prior study for comparison. Admission chest x-ray showed right infrahilar opacities, atelectasis versus developing infiltrates. Chest x-ray today showed moderate pulmonary edema.
[2021-01-26] MEDS: METOPROLOL TARTRATE 1 MG/ML VIAL IV PRN ×5 (14:07→22:20)
[2021-01-26 15:04] LABS: Basophils # (auto) 0.01 K/uL (0-0.2); Basophils % (auto) 0.1 %; Eosinophils # (auto) 0.22 K/uL (0-0.5); Eosinophils % (auto) 1.5 %; Hematocrit (blood only) 36.7 % (42-52); Hemoglobin 12.6 g/dL (14.0-18.0); Immature Granulocytes # (auto) 0.03 K/uL (0.00-0.02); Immature Granulocytes % (auto) 0.2 %; Lymphocytes # (auto) 1.59 K/uL (1.2-3.4); Lymphocytes % (auto) 10.8 %; Mean Corpuscular Hemoglobin 31.3 pg (25-34); Mean Corpuscular Hgb Conc 34.3 g/dL (32-36); Mean Corpuscular Volume 91.1 fL (80-100); Mean Platelet Volume 9.8 fL (7.4-10.4); Monocytes # (auto) 1.17 K/uL (0.11-0.59); Monocytes % (auto) 7.9 %; Neutrophils # (auto) 11.75 K/uL (1.4-6.5); Neutrophils % (auto) 79.5 %; Platelet Count 181 K/uL (130-400); RDW Coefficient of Variation 13.5 % (11.5-14.5); RDW Standard Deviation 44.5 fL (36.4-46.3); Red Blood Count 4.03 M/uL (4.7-6.1); White Blood Count 14.77 K/uL (4.8-10.8)
[2021-01-26 15:22] LABS: BUN Creatinine Ratio 19.1 (10-20); Calcium 8.5 mg/dl (8.5-10.1); Creatinine Clr Calc Pharmacy 33.2 ml/min; Est GFR (African American) 38.1 ml/min; Est GFR (Non-African American) 32.9 ml/min; Potassium 4.1 mmol/L (3.5-5.1)
[2021-01-26] MEDS ORDERED: ALBUT/IPRATROP 3MG/0.5MG NEB 3 ML VIAL NEB PRN (15:47)
[2021-01-26] MEDS ORDERED: DIGOXIN 125 MCG in SYRINGE 9.5 ML IV ONE (17:30)
[2021-01-26] MEDS: SIMVASTATIN 20 MG TAB PO SCH (20:04)
[2021-01-26] MEDS: ENOXAPARIN INJ 30 MG/0.3 ML SYR SQ SCH (20:04)
[2021-01-26] MEDS: METOPROLOL TARTRATE 25 MG TAB PO SCH (21:26)
[2021-01-27] MEDS: METOPROLOL TARTRATE 25 MG TAB PO SCH ×2 (00:56→08:09)
[2021-01-27] MEDS: AMPICILLIN/SULBACTAM SOD 1,500 MG in 0.9 % SODIUM CHLORIDE 100 ML IV SCH ×4 (03:12→21:18)
[2021-01-27 07:22] LABS: Basophils # (auto) 0.01 K/uL (0-0.2); Basophils % (auto) 0.1 %; Eosinophils # (auto) 0.37 K/uL (0-0.5); Eosinophils % (auto) 3.2 %; Hematocrit (blood only) 35.3 % (42-52); Hemoglobin 11.8 g/dL (14.0-18.0); Immature Granulocytes # (auto) 0.03 K/uL (0.00-0.02); Immature Granulocytes % (auto) 0.3 %; Lymphocytes # (auto) 1.49 K/uL (1.2-3.4); Lymphocytes % (auto) 12.9 %; Mean Corpuscular Hemoglobin 31.5 pg (25-34); Mean Corpuscular Hgb Conc 33.4 g/dL (32-36); Mean Corpuscular Volume 94.1 fL (80-100); Mean Platelet Volume 10.1 fL (7.4-10.4); Monocytes # (auto) 1.04 K/uL (0.11-0.59); Neutrophils # (auto) 8.65 K/uL (1.4-6.5); Neutrophils % (auto) 74.5 %; Platelet Count 189 K/uL (130-400); RDW Coefficient of Variation 13.6 % (11.5-14.5); RDW Standard Deviation 47.6 fL (36.4-46.3); Red Blood Count 3.75 M/uL (4.7-6.1); White Blood Count 11.59 K/uL (4.8-10.8)
[2021-01-27 07:51] LABS: BUN Creatinine Ratio 22.6 (10-20); Calcium 8.4 mg/dl (8.5-10.1); Creatinine Clr Calc Pharmacy 36.9 ml/min; Est GFR (African American) 43.3 ml/min; Est GFR (Non-African American) 37.4 ml/min; Magnesium 2.2 mg/dl (1.8-2.4)
[2021-01-27] MEDS: PANTOprazole 40 MG TAB PO SCH (08:08)
[2021-01-27] MEDS: CHOLECALCIFEROL 1,000 UNITS 25 MCG TAB PO SCH (08:10)
[2021-01-27] MEDS: CYANOCOBALAMIN 500 MCG TABLET (VITAMIN B-12) PO SCH (08:11)
[2021-01-27] MEDS: PYRIDOXINE HCL 50 MG TAB PO SCH (08:11)
[2021-01-27] MEDS: DORZOLAMIDE/TIMOLOL 22.3/6.8MG/ML 10 ML BTL OPL SCH ×2 (08:11→20:00)
[2021-01-27] MEDS: BRIMONIDINE TARTRATE-P 0.15% 5 ML BTL OP SCH ×2 (08:11→20:00)
[2021-01-27] MEDS: FOLIC ACID 1 MG TAB PO SCH (08:11)
[2021-01-27] MEDS: ACETAMINOPHEN 325 MG TAB PO PRN (08:13)
--- NOTE | 2021-01-27 10:38 | Orthopedic Progress Note ---
Date of Service January 27, 2021 Assessment & Plan (1) Intertrochanteric fracture of left femur: Plan: POD 2 s/p Left TFN PT/OT. WBAT when ok with Med service. DVT prophylaxis - Enoxaparin daily, SCD's Pain management as written. Converted back to normal sinus rhythm. Currently on 3 L of O2. DC planning-PT recommending home with home health services unless patient not progressing with his therapy. Then possibly rehab. Patient ambulated 25 feet this morning. Continue PT and OT sessions to increase stamina and ambulation distance. Admission and Anticipated Discharge Date Admission Date: January 24, 2021 Subjective Postop day 2 Patient sitting in wheelchair at the side of the bed. Just finished his occupational therapy session. 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 States he is much more aware now of his surroundings. Currently oriented. Had some mild pain in the left hip with physical therapy earlier. Pain currently controlled. No other complaints. Patient converted to normal sinus rhythm last night. Physical Exam Physical Exam: Dressings are clean, dry, and intact. Minimal swelling. No erythema. Calves are soft nontender. Neurovascular intact. Toes are mobile. Results & Data ([facility]) Vital Signs (Past 12 Hours) Vital Signs Temp Pulse Pulse Resp BP BP Pulse Ox 01/27/21 10:11 96 01/27/21 07:37 76 01/27/21 07:30 36.4 C L 70 18 116/69 95 01/27/21 04:00 36.8 C 62 18 105/62 92 01/27/21 00:43 72 01/27/21 00:00 36.6 C 69 18 96/61 L 92
--- NOTE | 2021-01-27 11:59 | Cardiology Progress Note ---
Date of Service January 27, 2021 Assessment & Plan (1) Paroxysmal A-fib: Plan: Converted to sinus overnight. Change to long-acting metoprolol (metoprolol succinate 50 mg p.o. daily). At this point, would not continue digoxin. Upon discharge, initiate rivaroxaban 15 mg daily (GFR less than 50). (2) Hypoxia: Plan: Appears euvolemic. Monitor for volume retention, if this occurs could start triamterene/HCTZ 37.5/25 upon discharge. (3) CKD (chronic kidney disease), stage III: Plan: Creatinine improved with diuresis. (4) Closed fracture of left hip: Admission and Anticipated Discharge Date Admission Date: January 24, 2021 Subjective Patient noted mild disorientation this morning but is lucid currently. He feels well denies any chest pain, dyspnea, subjective palpitations, or lightheadedness. Rhythm spontaneously returned to sinus about 10:30 PM last evening. Remains in sinus at 60-70 bpm. No somatic complaints this morning. Physical Exam 2 Physical Exam: No distress. Afebrile. BP variable, low overnight but now mildly hypertensive. Pulse 68 bpm and regular. Skin: no ecchymoses or generalized lesions. HEENT: unremarkable. Neck: Jugular venous pulse at the clavicle at 90 degrees, no carotid bruits. Lungs: Mildly decreased breath sounds with scattered rhonchi throughout, no wheezing or obvious crackles. No accessory muscle use. Cardiac: Regular rhythm, 2/6 apical holosystolic murmur, no diastolic murmur or gallop. Abdomen: benign. Extremities: no edema, brisk radial and posterior tibial pulses. Neurologic: normal affect and conversation, nonfocal. Results & Data ([facility]) Laboratory Results Hemoglobin 11.8, white count 11.6, normal platelet count. Normal electrolytes, BUN 36, creatinine 1.6 (down from 1.79 yesterday). PG Care Time/CCT Total # of Minutes Spent Total Time Spent with Patient: Total time spent is greater than 50% in coordination of care (as documented) at patient's floor/unit and/or counseling patient: Coding Level of Care Code 77662 Subseq Hosp Care Lvl 3 Diagnoses Paroxysmal A-fib I48.0 Hypoxia R09.02 Closed fracture of left hip S72.002A CKD (chronic kidney disease), stage III N18.30
--- NOTE | 2021-01-27 12:26 | Hospitalist Progress Note ---
Date of Service January 27, 2021 Assessment & Plan (1) Intertrochanteric fracture of left femur: Plan: Non-displaced intertrochanteric fracture of the left femur s/p mechanical fall at home Ortho consultedappreciate assistance Utilizing JUAN mcpherson and SCDs for now and holding his aspirin and chemoprophylaxis until postop -> Messaged ortho to see about DVT prophylaxis -- started Lovenox SQ 01/25 POD#2 s/p trochanteric nailing today with Dr. Garrett. Unfortunately had some aspiration the operative and required increased oxygenation and 94% on 5 L oxygen mask Senna, Miralax added for bowel regimen Pain control with Tylenol, oxycodone Lovenox for DVT proph --> plans for Xarelto as below (afib) Continue PT/OT --> possible d/c home health if able to make progress now that he is able to work with therapy (2) Atrial fibrillation with RVR: Plan: Developed AFIB c RVR AM of 01/26 (thankfully not symptomatic) rates 130-150s, up to 170s Multiple doses of IV Cardizem, digoxin x 1 dose 0.125mcg IV Cardiology consulted ECHO with RV dilation but suspected due to prior saddle PE per cardiology(on consult) Switched to Lopressor 5mg IV Q1H and eventually converted to NSR last evening around 10:30pm. Plans to switch to metoprolol succinate 50mg daily -- continue at d/c Will plan on Xarelto at reduced dose at discharge as well and this was discussed with patient. Will alert CM to check pricing/coupon (will d/c ASA to prevent bleeding) TSH wnl BP improved now that rates controlled and in NSR Continue to monitor on med-tele (3) Acute respiratory failure with hypoxia: Plan: Aspiration Pneumonia/Acute Repsiratory Failure with Hypoxia 2nd to aspiration in operative period, worsened subsequently with new onset afib/RVR as below --> Placed on Unasyn for aspiration pneumonia WBC improving, currently 11.5k Afebrile Unasyn (day 2) No further infiltrate on imaging but will plan to switch to Augmentin tomorrow to complete course Duonebs prn Continue incentive spirometer, flutter valve Sputum cx normal smiley Currently 93% on ROOM AIR No SOB reported (4) CKD (chronic kidney disease), stage III: Plan: CKD IIIa - 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 Cr improved to 1.61 Will avoid nephrotoxic medications, continue to hold metformin Avoiding further IVF at this time as appears euvolemic and encourage PO intake BMP in AM (5) Lumbar spinal stenosis: Plan: Chronic- with some mild radiculopathy down bilateral upper thigh Tiered pain control as above (6) Coronary artery calcification: Plan: Noted on CT scan in 2019 - Normal ECG, no anginal symptoms or exercises intolerance - Continue with simvastatin 20mg - ASA restart when cleared from surgical perspective (had been taking 3x/weekly) --> now going to be on Xarelto ?D/c ASA (7) Pulmonary embolism, bilateral: Plan: As per HPI- off anticoagulation for ~year - is on folate for hyperhomocystienemia and this is been continued Repeat echo w RV dilation but felt to be related to resolved saddle PE. 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 I agree w/ the mchugh components of her documentation. 89yo male POD #2 s/p left hip fracture ORIF. Post-operative acute pulmonary insufficiency 2nd to aspiration event. Remains on unasyn with plans to convert to PO augmentin. Paroxysmal rapid a.fib resolved; spontaneously converted to NSR last evening. Continue beta haley. PT/OT. Dispo planning. Beka Cameron MD Subjective Patient evaluated this afternoon. Feeling well. Had episode of delirium this morning where he felt the room was bigger than it was but symptoms have since resolved. Flipped back into NSR last evening and has been in the 60-70s. Per cardio recs, discussed placing on daily metoprolol succinate 50mg. Discussed if also if any volume retention can started HCTZ combo pill but will monitor for now. Some pain to L hip with therapy but states this is expected and controlled with ordered medications. Eating/drinking no issue. Passing gas but no BM. Plans for myers to d/c today and will monitor for retention. Less sputum production and now on room air. No fever, chills, chest pain, shortness of breath, abdominal pain, nausea, vomit ing at this time. If able to make progress with therapy can d/c with home health, otherwise would need to consider rehab. Questions/concerns addressed. Review of Systems Review of Systems: All systems reviewed & are unremarkable except as noted in HPI & below Physical Exam Physical Exam: Well-nourished well-developed in no acute distress. resting comfortable up in wheelchair eating lunch Eyes anicteric, pupils equal and reactive Mucous membranes moist, dry, trachea midline without deviation, no JVD Respiratory No acute distress, not tachypneic, scattered crackles throughout but no wheezing. 93% on RA Cardiac RRR (66bpm), no m/r/g, calves non-tender, no edema GI Positive bowel sounds throughout, soft, nondistended, nontender - Myers draining yellow urine Musculoskeletal dressing to left hip, nontender to palpation. Pulses palpable and sensation intact Psychalert and oriented x3, euthymic Results & Data Results & Data ([facility]) Vital Signs (Past 12 Hours) Vital Signs Temp Pulse Pulse Pulse Resp BP BP 01/27/21 12:03 68 16 01/27/21 11:00 36.5 C 68 18 145/75 H 01/27/21 10:11 01/27/21 07:37 76 01/27/21 07:30 36.4 C L 70 18 116/69 01/27/21 04:00 36.8 C 62 18 105/62 01/27/21 00:43 72 Pulse Ox 01/27/21 12:03 93 01/27/21 11:00 99 01/27/21 10:11 96 01/27/21 07:37 01/27/21 07:30 95 01/27/21 04:00 92 01/27/21 00:43 Laboratory Results 01/27/21 01/27/21 01/27/21 Range/Units 11:30 07:39 06:44 WBC (4.8-10.8) K/uL RBC (4.7-6.1) M/uL Hgb (14.0-18.0) g/dL Hct (42-52) % MCV (80-100) fL MCH (25-34) pg MCHC (32-36) g/dL RDW Std Deviation (36.4-46.3) fL RDW Coeff of Fabiola (11.5-14.5) % Plt Count (130-400) K/uL MPV (7.4-10.4) fL Immature Gran % (Auto) % Neut % (Auto) % Lymph % (Auto) % [place] % (Auto) % Eos % (Auto) % Baso % (Auto) % Neut # (Auto) (1.4-6.5) K/uL Lymph # (Auto) (1.2-3.4) K/uL [place] # (Auto) (0.11-0.59) K/uL Eos # (Auto) (0-0.5) K/uL Baso # (Auto) (0-0.2) K/uL Immature Gran # (Auto) (0.00-0.02) K/uL Sodium 138 (136-145) mmol/L Potassium 4.0 (3.5-5.1) mmol/L Chloride 105 (98-107) mmol/L Carbon Dioxide 27 (21-32) mmol/L Anion Gap 6.0 (3-11) BUN 36 H (7-18) mg/dl Creatinine 1.61 H (0.6-1.4) mg/dl Est Cr Clr Drug Dosing 36.9 ml/min Est GFR ( Amer) 43.3 ml/min Est GFR (Non-Af Amer) 37.4 ml/min BUN/Creatinine Ratio 22.6 H (10-20) Glucose 111 H (70-99) mg/dl POC Glucose 125 H 135 H (70-99) mg/dl Calcium 8.4 L (8.5-10.1) mg/dl Magnesium 2.2 (1.8-2.4) mg/dl 01/27/21 01/26/21 01/26/21 Range/Units 06:44 21:10 16:43 WBC 11.59 H (4.8-10.8) K/uL RBC 3.75 L (4.7-6.1) M/uL Hgb 11.8 L (14.0-18.0) g/dL Hct 35.3 L (42-52) % MCV 94.1 (80-100) fL MCH 31.5 (25-34) pg MCHC 33.4 (32-36) g/dL RDW Std Deviation 47.6 H (36.4-46.3) fL RDW Coeff of Fabiola 13.6 (11.5-14.5) % Plt Count 189 (130-400) K/uL MPV 10.1 (7.4-10.4) fL Immature Gran % (Auto) 0.3 % Neut % (Auto) 74.5 % Lymph % (Auto) 12.9 % [place] % (Auto) 9.0 % Eos % (Auto) 3.2 % Baso % (Auto) 0.1 % Neut # (Auto) 8.65 H (1.4-6.5) K/uL Lymph # (Auto) 1.49 (1.2-3.4) K/uL [place] # (Auto) 1.04 H (0.11-0.59) K/uL Eos # (Auto) 0.37 (0-0.5) K/uL Baso # (Auto) 0.01 (0-0.2) K/uL Immature Gran # (Auto) 0.03 H (0.00-0.02) K/uL Sodium (136-145) mmol/L Potassium (3.5-5.1) mmol/L Chloride (98-107) mmol/L Carbon Dioxide (21-32) mmol/L Anion Gap (3-11) BUN (7-18) mg/dl Creatinine (0.6-1.4) mg/dl Est Cr Clr Drug Dosing ml/min Est GFR ( Amer) ml/min Est GFR (Non-Af Amer) ml/min BUN/Creatinine Ratio (10-20) Glucose (70-99) mg/dl POC Glucose 134 H 116 H (70-99) mg/dl Calcium (8.5-10.1) mg/dl Magnesium (1.8-2.4) mg/dl 01/26/21 01/26/21 Range/Units 14:55 14:55 WBC 14.77 H (4.8-10.8) K/uL RBC 4.03 L (4.7-6.1) M/uL Hgb 12.6 L (14.0-18.0) g/dL Hct 36.7 L (42-52) % MCV 91.1 (80-100) fL MCH 31.3 (25-34) pg MCHC 34.3 (32-36) g/dL RDW Std Deviation 44.5 (36.4-46.3) fL RDW Coeff of Fabiola 13.5 (11.5-14.5) % Plt Count 181 (130-400) K/uL MPV 9.8 (7.4-10.4) fL Immature Gran % (Auto) 0.2 % Neut % (Auto) 79.5 % Lymph % (Auto) 10.8 % [place] % (Auto) 7.9 % Eos % (Auto) 1.5 % Baso % (Auto) 0.1 % Neut # (Auto) 11.75 H (1.4-6.5) K/uL Lymph # (Auto) 1.59 (1.2-3.4) K/uL [place] # (Auto) 1.17 H (0.11-0.59) K/uL Eos # (Auto) 0.22 (0-0.5) K/uL Baso # (Auto) 0.01 (0-0.2) K/uL Immature Gran # (Auto) 0.03 H (0.00-0.02) K/uL Sodium 134 L (136-145) mmol/L Potassium 4.1 (3.5-5.1) mmol/L Chloride 104 (98-107) mmol/L Carbon Dioxide 24 (21-32) mmol/L Anion Gap 6.0 (3-11) BUN 34 H (7-18) mg/dl Creatinine 1.79 H (0.6-1.4) mg/dl Est Cr Clr Drug Dosing 33.2 ml/min Est GFR ( Amer) 38.1 ml/min Est GFR (Non-Af Amer) 32.9 ml/min BUN/Creatinine Ratio 19.1 (10-20) Glucose 126 H (70-99) mg/dl POC Glucose (70-99) mg/dl Calcium 8.5 (8.5-10.1) mg/dl Magnesium (1.8-2.4) mg/dl PG Care Time/CCT Total # of Minutes Spent Total Time Spent with Patient: Total time spent is greater than 50% in coordination of care (as documented) at patient's floor/unit and/or counseling patient: Coding Level of Care Code 17795 Subseq Hosp Care Lvl 3 Diagnoses Intertrochanteric fracture of left femur S72.142A Atrial fibrillation with RVR I48.91 Acute respiratory failure with hypoxia J96.01 CKD (chronic kidney disease), stage III N18.30 Lumbar spinal stenosis M48.062 Neurogenic claudication status: with neurogenic claudication Coronary artery calcification I25.10; I25.84 Pulmonary embolism, bilateral I26.99 Type 2 diabetes mellitus E11.9 Diabetes mellitus complication status: without complication 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
[2021-01-27] MEDS: DOCUSATE SODIUM/SENNA 50/8.6MG TAB PO SCH (14:01)
[2021-01-27] MEDS: METOPROLOL SUCC 50MG EXT REL TAB PO SCH (14:01)
[2021-01-27] MEDS: POLYETHYLENE (MIRALAX) 17 GM PACK PO SCH (14:01)
[2021-01-27] MEDS: ENOXAPARIN INJ 30 MG/0.3 ML SYR SQ SCH (20:00)
[2021-01-27] MEDS: SIMVASTATIN 20 MG TAB PO SCH (20:01)
[2021-01-28] MEDS: ACETAMINOPHEN 325 MG TAB PO PRN ×2 (04:21→20:45)
[2021-01-28] MEDS: AMPICILLIN/SULBACTAM SOD 1,500 MG in 0.9 % SODIUM CHLORIDE 100 ML IV SCH ×3 (04:21→16:17)
[2021-01-28 07:28] LABS: Basophils # (auto) 0.01 K/uL (0-0.2); Basophils % (auto) 0.1 %; Eosinophils # (auto) 0.39 K/uL (0-0.5); Eosinophils % (auto) 3.6 %; Hematocrit (blood only) 35.3 % (42-52); Hemoglobin 12.1 g/dL (14.0-18.0); Immature Granulocytes # (auto) 0.04 K/uL (0.00-0.02); Immature Granulocytes % (auto) 0.4 %; Lymphocytes # (auto) 1.58 K/uL (1.2-3.4); Lymphocytes % (auto) 14.6 %; Mean Corpuscular Hgb Conc 34.3 g/dL (32-36); Mean Corpuscular Volume 90.5 fL (80-100); Monocytes # (auto) 0.81 K/uL (0.11-0.59); Monocytes % (auto) 7.5 %; Neutrophils # (auto) 7.99 K/uL (1.4-6.5); Neutrophils % (auto) 73.8 %; Platelet Count 227 K/uL (130-400); RDW Coefficient of Variation 13.5 % (11.5-14.5); RDW Standard Deviation 44.4 fL (36.4-46.3); White Blood Count 10.82 K/uL (4.8-10.8)
[2021-01-28 07:54] LABS: BUN Creatinine Ratio 24.3 (10-20); Calcium 8.7 mg/dl (8.5-10.1); Creatinine Clr Calc Pharmacy 43.8 ml/min; Est GFR (African American) 53.1 ml/min; Est GFR (Non-African American) 45.8 ml/min; Potassium 3.9 mmol/L (3.5-5.1)
--- NOTE | 2021-01-28 08:34 | Hospitalist Progress Note ---
Date of Service January 28, 2021 Assessment & Plan (1) Intertrochanteric fracture of left femur: Plan: Non-displaced intertrochanteric fracture of the left femur s/p mechanical fall at home Ortho consultedappreciate assistance Utilizing JUAN mcpherson and SCDs for now and holding his aspirin and chemoprophylaxis until postop -> Messaged ortho to see about DVT prophylaxis -- started Lovenox SQ 01/25 POD#3 s/p trochanteric nailing today with Dr. Garrett. Unfortunately had some aspiration the operative and required increased oxygenation and 94% on 5 L oxygen mask Senna, Miralax added for bowel regimen Pain control with Tylenol, oxycodone Lovenox for DVT proph --> plans for Xarelto as below (afib) Continue PT/OT --> possible d/c home health if able to make progress now that he is able to work with therapy and was able to ambulate 100 feet today family may be [id number] and possible discharge tomorrow [facility] if approved by insurance however otherwise family planning on Sunday (2) Atrial fibrillation with RVR: Plan: Developed AFIB c RVR AM of 01/26 (thankfully not symptomatic) rates 130-150s, up to 170s Multiple doses of IV Cardizem, digoxin x 1 dose 0.125mcg IV Cardiology consulted ECHO with RV dilation but suspected due to prior saddle PE per cardiology(on consult) Switched to Lopressor 5mg IV Q1H and eventually converted to NSR on 01/26 around 10:30pm normal sinus rhythm Plans to switch to metoprolol succinate 50mg daily -- continue at d/c Will plan on Xarelto at reduced dose at discharge as well and this was discussed with patient. Will alert CM to check pricing/coupon (will d/c ASA to prevent bleeding) TSH wnl BP improved now that rates controlled and in NSR Continue to monitor on med-tele (3) Acute respiratory failure with hypoxia: Plan: Aspiration Pneumonia/Acute Repsiratory Failure with Hypoxia 2nd to aspiration in operative period, worsened subsequently with new onset afib/RVR as below --> Placed on Unasyn for aspiration pneumonia WBC improving, currently 11.5k Afebrile Unasyn (day 3) --> change to AUgmentin for tomorrow Repeat CXR for resolution as outpatient Duonebs prn Continue incentive spirometer, flutter valve Sputum cx normal smiley Currently 94% on ROOM AIR No SOB reported (4) CKD (chronic kidney disease), stage III: Plan: CKD IIIa - SCHEDULING CLERK 1.46 on admission normally 1.3 Cr 1.79 after lasix for congestion on 01/26 as well as worsened d/t hypotension from afib/rvr as above Now in NSR. Cr improved to 1.36 Will avoid nephrotoxic medications, continue to hold metformin Avoiding further IVF at this time as appears euvolemic and encourage PO intake (5) Lumbar spinal stenosis: Plan: Chronic- with some mild radiculopathy down bilateral upper thigh Tiered pain control as above -- only requiring tylenol (6) Coronary artery calcification: Plan: Noted on CT scan in 2019 - Normal ECG, no anginal symptoms or exercises intolerance - Continue with simvastatin 20mg - ASA restart when cleared from surgical perspective (had been taking 3x/weekly) --> now going to be on Xarelto No need for further ASA as "passed stress test" with asymptomatic HRs when afib RVR with rates up to 170s (7) Pulmonary embolism, bilateral: Plan: As per HPI- off anticoagulation for ~year - is on folate for hyperhomocystienemia and this is been continued Repeat echo w RV dilation but felt to be related to resolved saddle PE. 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 I agree w/ the mchugh components of her documentation. 89yo male POD #3 s/p left hip fracture ORIF. Stable from ortho standpoint. Post-operative acute pulmonary insufficiency 2nd to aspiration event - resolved, off O2. Cont abx. Changing to augmentin tonight. d/c unasyn. Paroxysmal rapid a.fib resolved; spontaneously converted to NSR 2 evenings ago. Has been in NSR since. Continue beta haley. Continue xarelto. s/p lasix for probable volume overload. LETICIA - improving. Cr 1.3 today. Delirium/met encephalopathy - improved. This was likely 2nd to aspiration pneumonia, medications, hospital psychosis, etc. Cont PT/OT. Dispo planning -- hoping for [facility]. Beka Cameron MD Subjective Patient interviewed this morning. Feeling well. Unsure why he was on oxygen overnight last and stated maybe they were using him as a test subject. No further delirium. No further recurrence of A. fib and heart rate has been controlled on metoprolol and this will be continued.. Work with therapy and ambulated 100 feet. Concerns [facility] may not be paid for out of pocket and he states that he did not want to be a burden on his family and they may be able to pay out of pocket if this is the decision they want to make but they were going to contact case management for further discussion. Pain currently controlled with Tylenol. Will be placed on Xarelto as well for A. fib. Heart rate has been well controlled on metoprolol succinate 50mg. Breathing stable no shortness of breath but does have occasional cough sputum. No evidence of heart failure or edema at this time or need for diuretic therapy. Cardiology stop by room during encounter agreed with current plan. Chest x-ray with improvement but did note right middle lobe opacity and recommends repeat imaging for follow-up.. Patient denies any fever, chills, chest pain, shortness of breath, abdominal pain nausea or vomiting. He has been passing gas but no bowel movement just yet. Plans for discharge later today or tomorrow with home health and prescription has been provided case management for a wheeled walker. Review of Systems Review of Systems: All systems reviewed & are unremarkable except as noted in HPI & below Physical Exam Physical Exam: Well-nourished well-developed in no acute distress. resting comfortable up in wheelchair eating lunch Eyes anicteric, pupils equal and reactive Mucous membranes moist, dry, trachea midline without deviation, no JVD Respiratory No acute distress, not tachypneic, scattered crackles throughout but no wheezing. 93% on RA Cardiac RRR (66bpm), no m/r/g, calves non-tender, no edema GI Positive bowel sounds throughout, soft, nondistended, nontender - Murillo draining yellow urine Musculoskeletal dressing to left hip, nontender to palpation. Pulses palpable and sensation intact. Surgical nabila in place and open to air, no erythema nontender Psychalert and oriented x3, euthymic Results & Data Results & Data ([facility]) Vital Signs (Past 12 Hours) Vital Signs Temp Pulse Pulse Resp BP BP Pulse Ox 01/28/21 08:22 36.7 C 62 16 153/74 H 94 01/28/21 04:00 36.4 C L 68 18 135/77 93 01/28/21 00:37 74 01/28/21 00:00 36.7 C 63 18 137/79 92 Laboratory Results 01/28/21 01/28/21 01/28/21 Range/Units 07:45 06:47 06:47 WBC 10.82 H (4.8-10.8) K/uL RBC 3.90 L (4.7-6.1) M/uL Hgb 12.1 L (14.0-18.0) g/dL Hct 35.3 L (42-52) % MCV 90.5 (80-100) fL MCH 31.0 (25-34) pg MCHC 34.3 (32-36) g/dL RDW Std Deviation 44.4 (36.4-46.3) fL RDW Coeff of Fabiola 13.5 (11.5-14.5) % Plt Count 227 (130-400) K/uL MPV 10.0 (7.4-10.4) fL Immature Gran % (Auto) 0.4 % Neut % (Auto) 73.8 % Lymph % (Auto) 14.6 % Obion % (Auto) 7.5 % Eos % (Auto) 3.6 % Baso % (Auto) 0.1 % Neut # (Auto) 7.99 H (1.4-6.5) K/uL Lymph # (Auto) 1.58 (1.2-3.4) K/uL [place] # (Auto) 0.81 H (0.11-0.59) K/uL Eos # (Auto) 0.39 (0-0.5) K/uL Baso # (Auto) 0.01 (0-0.2) K/uL Immature Gran # (Auto) 0.04 H (0.00-0.02) K/uL Sodium 137 (136-145) mmol/L Potassium 3.9 (3.5-5.1) mmol/L Chloride 107 (98-107) mmol/L Carbon Dioxide 24 (21-32) mmol/L Anion Gap 6.0 (3-11) BUN 33 H (7-18) mg/dl Creatinine 1.36 (0.6-1.4) mg/dl Est Cr Clr Drug Dosing 43.8 ml/min Est GFR ( Amer) 53.1 ml/min Est GFR (Non-Af Amer) 45.8 ml/min BUN/Creatinine Ratio 24.3 H (10-20) Glucose 122 H (70-99) mg/dl POC Glucose 114 H (70-99) mg/dl Calcium 8.7 (8.5-10.1) mg/dl 01/27/21 01/27/21 01/27/21 Range/Units 20:38 16:42 11:30 WBC (4.8-10.8) K/uL RBC (4.7-6.1) M/uL Hgb (14.0-18.0) g/dL Hct (42-52) % MCV (80-100) fL MCH (25-34) pg MCHC (32-36) g/dL RDW Std Deviation (36.4-46.3) fL RDW Coeff of Fabiola (11.5-14.5) % Plt Count (130-400) K/uL MPV (7.4-10.4) fL Immature Gran % (Auto) % Neut % (Auto) % Lymph % (Auto) % [place] % (Auto) % Eos % (Auto) % Baso % (Auto) % Neut # (Auto) (1.4-6.5) K/uL Lymph # (Auto) (1.2-3.4) K/uL Obion # (Auto) (0.11-0.59) K/uL Eos # (Auto) (0-0.5) K/uL Baso # (Auto) (0-0.2) K/uL Immature Gran # (Auto) (0.00-0.02) K/uL Sodium (136-145) mmol/L Potassium (3.5-5.1) mmol/L Chloride (98-107) mmol/L Carbon Dioxide (21-32) mmol/L Anion Gap (3-11) BUN (7-18) mg/dl Creatinine (0.6-1.4) mg/dl Est Cr Clr Drug Dosing ml/min Est GFR ( Amer) ml/min Est GFR (Non-Af Amer) ml/min BUN/Creatinine Ratio (10-20) Glucose (70-99) mg/dl POC Glucose 134 H 136 H 125 H (70-99) mg/dl Calcium (8.5-10.1) mg/dl Diagnostic Findings 01/28/21 01/28/21 01/28/21 Range/Units 10:59 07:45 06:47 WBC (4.8-10.8) K/uL RBC (4.7-6.1) M/uL Hgb (14.0-18.0) g/dL Hct (42-52) % MCV (80-100) fL MCH (25-34) pg MCHC (32-36) g/dL RDW Std Deviation (36.4-46.3) fL RDW Coeff of Fabiola (11.5-14.5) % Plt Count (130-400) K/uL MPV (7.4-10.4) fL Immature Gran % (Auto) % Neut % (Auto) % Lymph % (Auto) % [place] % (Auto) % Eos % (Auto) % Baso % (Auto) % Neut # (Auto) (1.4-6.5) K/uL Lymph # (Auto) (1.2-3.4) K/uL [place] # (Auto) (0.11-0.59) K/uL Eos # (Auto) (0-0.5) K/uL Baso # (Auto) (0-0.2) K/uL Immature Gran # (Auto) (0.00-0.02) K/uL Sodium 137 (136-145) mmol/L Potassium 3.9 (3.5-5.1) mmol/L Chloride 107 (98-107) mmol/L Carbon Dioxide 24 (21-32) mmol/L Anion Gap 6.0 (3-11) BUN 33 H (7-18) mg/dl Creatinine 1.36 (0.6-1.4) mg/dl Est Cr Clr Drug Dosing 43.8 ml/min Est GFR ( Amer) 53.1 ml/min Est GFR (Non-Af Amer) 45.8 ml/min BUN/Creatinine Ratio 24.3 H (10-20) Glucose 122 H (70-99) mg/dl POC Glucose 159 H 114 H (70-99) mg/dl Calcium 8.7 (8.5-10.1) mg/dl 01/28/21 01/27/21 01/27/21 Range/Units 06:47 20:38 16:42 WBC 10.82 H (4.8-10.8) K/uL RBC 3.90 L (4.7-6.1) M/uL Hgb 12.1 L (14.0-18.0) g/dL Hct 35.3 L (42-52) % MCV 90.5 (80-100) fL MCH 31.0 (25-34) pg MCHC 34.3 (32-36) g/dL RDW Std Deviation 44.4 (36.4-46.3) fL RDW Coeff of Fabiola 13.5 (11.5-14.5) % Plt Count 227 (130-400) K/uL MPV 10.0 (7.4-10.4) fL Immature Gran % (Auto) 0.4 % Neut % (Auto) 73.8 % Lymph % (Auto) 14.6 % [place] % (Auto) 7.5 % Eos % (Auto) 3.6 % Baso % (Auto) 0.1 % Neut # (Auto) 7.99 H (1.4-6.5) K/uL Lymph # (Auto) 1.58 (1.2-3.4) K/uL [place] # (Auto) 0.81 H (0.11-0.59) K/uL Eos # (Auto) 0.39 (0-0.5) K/uL Baso # (Auto) 0.01 (0-0.2) K/uL Immature Gran # (Auto) 0.04 H (0.00-0.02) K/uL Sodium (136-145) mmol/L Potassium (3.5-5.1) mmol/L Chloride (98-107) mmol/L Carbon Dioxide (21-32) mmol/L Anion Gap (3-11) BUN (7-18) mg/dl Creatinine (0.6-1.4) mg/dl Est Cr Clr Drug Dosing ml/min Est GFR ( Amer) ml/min Est GFR (Non-Af Amer) ml/min BUN/Creatinine Ratio (10-20) Glucose (70-99) mg/dl POC Glucose 134 H 136 H (70-99) mg/dl Calcium (8.5-10.1) mg/dl PG Care Time/CCT Total # of Minutes Spent Total Time Spent with Patient: Total time spent is greater than 50% in coordination of care (as documented) at patient's floor/unit and/or counseling patient: Coding Level of Care Code 30514 Subseq Hosp Care Lvl 3 Diagnoses Intertrochanteric fracture of left femur S72.142A Atrial fibrillation with RVR I48.91 Acute respiratory failure with hypoxia J96.01 CKD (chronic kidney disease), stage III N18.30 Lumbar spinal stenosis M48.062 Neurogenic claudication status: with neurogenic claudication Coronary artery calcification I25.10; I25.84 Pulmonary embolism, bilateral I26.99 Type 2 diabetes mellitus E11.9 Diabetes mellitus complication status: without complication Diabetes mellitus senior care insulin use: without manager long term care use Glaucoma H40.9 Dyslipidemia E78.5 Hypoxia R09.02 (1) Lumbar spinal stenosis Neurogenic claudication status: with neurogenic claudication Qualified Code(s): M48.062 - Spinal stenosis, lumbar region with neurogenic claudication (2) Type 2 diabetes mellitus Diabetes mellitus complication status: without complication Diabetes mellitus manager long term care insulin use: without senior care use Qualified Code(s): E11.9 - Type 2 diabetes mellitus without complications
[2021-01-28] MEDS: DORZOLAMIDE/TIMOLOL 22.3/6.8MG/ML 10 ML BTL OPL SCH ×2 (08:46→20:17)
[2021-01-28] MEDS: BRIMONIDINE TARTRATE-P 0.15% 5 ML BTL OP SCH ×2 (08:47→20:16)
[2021-01-28] MEDS: CYANOCOBALAMIN 500 MCG TABLET (VITAMIN B-12) PO SCH (08:49)
[2021-01-28] MEDS: METOPROLOL SUCC 50MG EXT REL TAB PO SCH (08:49)
[2021-01-28] MEDS: POLYETHYLENE (MIRALAX) 17 GM PACK PO SCH (08:49)
[2021-01-28] MEDS: PYRIDOXINE HCL 50 MG TAB PO SCH (08:49)
[2021-01-28] MEDS: CHOLECALCIFEROL 1,000 UNITS 25 MCG TAB PO SCH (08:49)
[2021-01-28] MEDS: DOCUSATE SODIUM/SENNA 50/8.6MG TAB PO SCH (08:49)
[2021-01-28] MEDS: PANTOprazole 40 MG TAB PO SCH (08:49)
[2021-01-28] MEDS: FOLIC ACID 1 MG TAB PO SCH (08:50)
--- NOTE | 2021-01-28 09:40 | XRay Report ---
XR chest 1V portable CLINICAL HISTORY: f/u hypoxia, congestion COMPARISON STUDY: Chest radiograph January 26, 2021. FINDINGS: No pneumothorax or pleural effusion is noted. There may be opacity at the medial right lung base. Cardiac size is at the upper limits of normal. Interstitial thickening has decreased. There is no evidence for overt pulmonary edema. Calcified left upper lobe nodules are benign. IMPRESSION: Possible opacity at the medial right lung base. This may reflect pneumonia or atelectasi s. Radiographic follow-up to ensure resolution is recommended. ACT 112: Negative or not required by law. Electronically signed by: Alex Samuels M.D. 01/28/2021 9:39 AM
--- NOTE | 2021-01-28 10:22 | Orthopedic Progress Note ---
Date of Service January 28, 2021 Assessment & Plan (1) Intertrochanteric fracture of left femur: Plan: POD 3 s/p Left TFN PT/OT. WBAT when ok with Med service. DVT prophylaxis - Enoxaparin daily, SCD's Pain management as written. Currently on 3 L of O2. DC planning-progressing further with his physical therapy. We discussed that we want to make sure that he is safe at home. I spoke to his on the phone during my visit to see the patient. I think is appropriate to see if [facility] would have bed availability and if he would be eligible from his insurance standpoint to go there. Patient states he is willing to pay a few days [id number] to go to rehab. This will also depend on the hospitalist and cardiology service on what they feel will be needed post discharge. Orthopedics will sign off at this time. Instructions placed in the discharge instructions section. Please call me with any questions. Admission and Anticipated Discharge Date Admission Date: January 24, 2021 Subjective Postop day 3 Patient sitting up in his wheelchair at the bedside. He just finished physical therapy session. Physical therapy states that he ambulated 100 feet today. Patient feels well. No complaints this morning pain control. He states he has not had a bowel movement yet but is not having abdominal discomfort. Patient and family questioning whether he should go to a rehab facility versus home with home health. Physical Exam Physical Exam: Dressings removed. Incisions very benign. Mild swelling. No erythema. Thigh with mild swelling consistent with surgery. Calves are soft and nontender. Neurovascular intact. Toes are mobile. Results & Data ([facility]) Vital Signs (Past 12 Hours) Vital Signs Temp Pulse Pulse Resp BP BP Pulse Ox 01/28/21 08:22 36.7 C 62 16 153/74 H 94 01/28/21 04:00 36.4 C L 68 18 135/77 93 01/28/21 00:37 74 01/28/21 00:00 36.7 C 63 18 137/79 92
--- NOTE | 2021-01-28 14:30 | Cardiology Progress Note ---
Date of Service January 28, 2021 Assessment & Plan (1) Paroxysmal A-fib: Plan: Remains in sinus rhythm, continue metoprolol succinate 50 mg daily as outpatient. Upon discharge, initiate rivaroxaban 15 mg daily (GFR less than 50). (2) Hypoxia: Plan: Appears euvolemic. No need for routine diuretic. (3) CKD (chronic kidney disease), stage III: (4) Closed fracture of left hip: Admission and Anticipated Discharge Date Admission Date: January 24, 2021 Subjective Uneventful night. Patient remains in sinus rhythm and had no major complaints. He still does have a cough which is occasionally productive. He denies chest pain, dyspnea, palpitations. Physical Exam Physical Exam: No distress. Afebrile. BP generally normotensive. Pulse 62 bpm and regular. Skin: no ecchymoses or generalized lesions. HEENT: unremarkable. Neck: Jugular venous pulse at the clavicle at 90 degrees, no carotid bruits. Lungs: Mildly decreased breath sounds with scattered rhonchi and sa few basilar crackles. No accessory muscle use. Cardiac: Regular rhythm, 2/6 apical holosystolic murmur, no diastolic murmur or gallop. Abdomen: benign. Extremities: no edema, brisk radial and posterior tibial pulses. Neurologic: normal affect and conversation, nonfocal. Results & Data ([facility]) Vital Signs (Past 12 Hours) Vital Signs Temp Pulse Pulse Resp BP BP Pulse Ox 01/28/21 11:42 97.7 F 105 H 16 128/69 94 01/28/21 09:00 65 01/28/21 08:22 98.1 F 62 16 153/74 H 94 01/28/21 04:00 97.5 F L 68 18 135/77 93 Laboratory Results Hemoglobin 12.1, WBC 10.8. Normal electrolytes, BUN 33, creatinine 1.36. PG Care Time/CCT Total # of Minutes Spent Total Time Spent with Patient: Total time spent is greater than 50% in coordination of care (as documented) at patient's floor/unit and/or counseling patient: Coding Level of Care Code 89402 Subseq Hosp Care Lvl 3 Diagnoses Paroxysmal A-fib I48.0 Hypoxia R09.02 CKD (chronic kidney disease), stage III N18.30 Closed fracture of left hip S72.002A
[2021-01-28] MEDS ORDERED: MAGNESIUM CITRATE 296 ML/BTL PO ONE (15:30)
[2021-01-28] MEDS: AMOXICILLIN/CLAVULANATE 875 MG TAB PO SCH (17:31)
[2021-01-28] MEDS: ENOXAPARIN INJ 30 MG/0.3 ML SYR SQ SCH (20:17)
[2021-01-28] MEDS: SIMVASTATIN 20 MG TAB PO SCH (20:18)
[2021-01-29] MEDS ORDERED: AMOXICILLIN/CLAVULANATE 875 MG TAB PO SCH (08:00)
[2021-01-29] MEDS: DORZOLAMIDE/TIMOLOL 22.3/6.8MG/ML 10 ML BTL OPL SCH ×2 (08:05→20:13)
[2021-01-29] MEDS: DOCUSATE SODIUM/SENNA 50/8.6MG TAB PO SCH (08:05)
[2021-01-29] MEDS: BRIMONIDINE TARTRATE-P 0.15% 5 ML BTL OP SCH ×2 (08:05→20:13)
[2021-01-29] MEDS: PANTOprazole 40 MG TAB PO SCH (08:06)
[2021-01-29] MEDS: METOPROLOL SUCC 50MG EXT REL TAB PO SCH (08:06)
[2021-01-29] MEDS: AMOXICILLIN/CLAVULANATE 875 MG TAB PO SCH ×2 (08:06→17:00)
[2021-01-29] MEDS: CYANOCOBALAMIN 500 MCG TABLET (VITAMIN B-12) PO SCH (08:06)
[2021-01-29] MEDS: PYRIDOXINE HCL 50 MG TAB PO SCH (08:06)
[2021-01-29] MEDS: FOLIC ACID 1 MG TAB PO SCH (08:06)
[2021-01-29] MEDS: CHOLECALCIFEROL 1,000 UNITS 25 MCG TAB PO SCH (08:07)
[2021-01-29] MEDS: POLYETHYLENE (MIRALAX) 17 GM PACK PO SCH (08:07)
--- NOTE | 2021-01-29 14:11 | Hospitalist Progress Note ---
Date of Service January 29, 2021 Assessment & Plan (1) Intertrochanteric fracture of left femur: Plan: Non-displaced intertrochanteric fracture of the left femur s/p mechanical fall at home Ortho consultedappreciate assistance POD#4 s/p trochanteric nailing today with Dr. Garrett. Unfortunately had some aspiration intra-op and required increased oxygenation and 94% on 5 L oxygen mask Senna, Miralax added for bowel regimen Pain control with Tylenol, oxycodone Lovenox for DVT proph --> plans for Xarelto as below (afib) Continue PT/OT --> plan to d/c to [facility] tomorrow for rehab (2) Atrial fibrillation with RVR: Plan: Developed AFIB c RVR AM of 01/26 (thankfully not symptomatic) rates 130-150s, up to 170s---> rate of 68 this AM. Multiple doses of IV Cardizem, digoxin x 1 dose 0.125mcg IV Cardiology consulted ECHO with RV dilation but suspected due to prior saddle PE per cardiology(on consult) Switched to Lopressor 5mg IV Q1H and eventually converted to NSR on 01/26 around 10:30pm normal sinus rhythm Has been started on metoprolol succinate 50mg daily -- continue at d/c Will plan on Xarelto at reduced dose at discharge as well and this was discussed with patient. Will alert CM to check pricing/coupon (will d/c ASA to prevent bleeding) TSH wnl Rates controlled and in NSR, but BP elevated at 162/76 this AM. Continue to monitor. Continue to monitor on [employer]-tele (3) Acute respiratory failure with hypoxia: Plan: Aspiration Pneumonia/Acute Repsiratory Failure with Hypoxia 2nd to aspiration in operative period, worsened subsequently with new onset afib/RVR as below --> Placed on Unasyn for aspiration pneumonia WBC improved--> 10.82 yesterday Afebrile Received 3 days of Unasyn---now on Augmentin Repeat CXR in 1 week for resolution as outpatient Duonebs prn Continue incentive spirometer, flutter valve Sputum cx normal smiley Currently 92% on ROOM AIR No SOB reported (4) CKD (chronic kidney disease), stage III: Plan: CKD IIIa - [employer] 1.46 on admission normally 1.3--- now returned to baseline at 1.36 on 01/28 Will avoid nephrotoxic medications, continue to hold metformin Avoiding further IVF at this time as he appears euvolemic and encourage PO intake (5) Lumbar spinal stenosis: Plan: Chronic- with some mild radiculopathy down bilateral upper thigh Tiered pain control as above -- only requiring tylenol (6) Coronary artery calcification: Plan: Noted on CT scan in 2019 - Normal ECG, no anginal symptoms or exercise intolerance - Continue with simvastatin 20mg - Discontinue ASA, and start Xarelto 15mg daily for a-fib per cardiology (7) Pulmonary embolism, bilateral: Plan: As per HPI- off anticoagulation for ~year - is on folate for hyperhomocysteinemia and this has been continued Repeat echo w RV dilation but felt to be related to resolved saddle PE. No need for acute CTA Plans for Xarelto at discharge (8) Type 2 diabetes mellitus: Plan: Controlled only with Metformin 500 mg daily A1c most recently only 6.4 in November 2020 Goal <180 - AC/HS checks - notify hospitalist if >180 will add coverage (9) Glaucoma: Plan: Continue home eye drops (10) Dyslipidemia: Plan: Continue simvastatin (11) Hypoxia: Plan: As above. 92% on RA this morning. 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 Admission and Anticipated Discharge Date Admission Date: January 24, 2021 Supervising Physician Co-Signing Physician Notes Attending Attestation - Chart reviewed in detail, care plan d/w STEPHANIE Valderrama. I agree w/ the mchugh components of her documentation. 89yo male POD #4 s/p left hip fracture ORIF. Stable from ortho standpoint. Post-operative acute pulmonary insufficiency 2nd to aspiration event - resolved, off O2. Cont augmentin for aspiration pneumonia. Paroxysmal rapid a.fib resolved; spontaneously converted to NSR. Has been in NSR since. Continue beta haley. Continue xarelto. Dispo - [facility], likely tomorrow. Beka Cameron MD Subjective 89 yo male admitted with intertrochanteric fracture of left femur. Patient reports he feels well this morning. Denies pain, SOB, or n/v. He is requesting to go to the bathroom to have a BM this morning, and sit up in the chair. No other complaints today. He is awaiting discharge to [facility]. Review of Systems Review of Systems: All systems reviewed & are unremarkable except as noted in Subjective Physical Exam Physical Exam: Temp Pulse Resp BP Pulse Ox 36.8 C 68 18 162/76 H 92 01/29/21 07:40 01/29/21 07:40 01/29/21 07:40 01/29/21 07:40 01/29/21 07:40 Patient is afebrile. He is hypertensive at 162/76, but is asymptomatic. Constitutional: average body habitus; no acute distress Eyes: + anicteric sclerae ENMT: Ears: no hearing impairment Neck: normal visual inspection Respiratory: normal respiratory effort, lungs clear to auscultation Cardiovascular: Rate/Rhythm: regular rate and regular rhythm Heart Sounds: + murmur Gastrointestinal (Abdomen): Inspection/Auscultation: normal bowel sounds Percussion/Palpation: abdomen soft; abdomen nontender Musculoskeletal: Head/Neck/Chest: normocephalic Psychiatric: A+Ox3, euthymic affect Results & Data Results & Data ([facility]) Vital Signs (Past 12 Hours) Vital Signs Temp Pulse Pulse Resp BP BP Pulse Ox 01/29/21 07:40 36.8 C 68 68 18 162/76 H 92 01/29/21 04:00 36.8 C 68 18 153/77 H 91 PG Care Time/CCT Total # of Minutes Spent Total Time Spent with Patient: Total time spent is greater than 50% in coordination of care (as documented) at patient's floor/unit and/or counseling patient: Coding Level of Care Code 92501 Subseq Hosp Care Lvl 3 Medical Decision Making Moderate Complexity Diagnoses Intertrochanteric fracture of left femur S72.142A Atrial fibrillation with RVR I48.91 Acute respiratory failure with hypoxia J96.01 CKD (chronic kidney disease), stage III N18.30 Lumbar spinal stenosis M48.062 Neurogenic claudication status: with neurogenic claudication Coronary artery calcification I25.10; I25.84 Pulmonary embolism, bilateral I26.99 Type 2 diabetes mellitus E11.9 Diabetes mellitus complication status: without complication Diabetes mellitus halfway insulin use: without halfway use Glaucoma H40.9 Dyslipidemia E78.5 Hypoxia R09.02 (1) Lumbar spinal stenosis Neurogenic claudication status: with neurogenic claudication Qualified Code(s): M48.062 - Spinal stenosis, lumbar region with neurogenic claudication (2) Type 2 diabetes mellitus Diabetes mellitus complication status: without complication Diabetes mellitus halfway insulin use: without halfway use Qualified Code(s): E11.9 - Type 2 diabetes mellitus without complications
[2021-01-29] MEDS: ACETAMINOPHEN 325 MG TAB PO PRN ×2 (15:20→22:00)
[2021-01-29] MEDS: ENOXAPARIN INJ 30 MG/0.3 ML SYR SQ SCH (20:14)
[2021-01-29] MEDS: SIMVASTATIN 20 MG TAB PO SCH (20:14)
[2021-01-30] MEDS: DORZOLAMIDE/TIMOLOL 22.3/6.8MG/ML 10 ML BTL OPL SCH (07:38)
[2021-01-30] MEDS: POLYETHYLENE (MIRALAX) 17 GM PACK PO SCH (07:39)
[2021-01-30] MEDS: DOCUSATE SODIUM/SENNA 50/8.6MG TAB PO SCH (07:39)
[2021-01-30] MEDS: PYRIDOXINE HCL 50 MG TAB PO SCH (07:39)
[2021-01-30] MEDS: PANTOprazole 40 MG TAB PO SCH (07:39)
[2021-01-30] MEDS: CHOLECALCIFEROL 1,000 UNITS 25 MCG TAB PO SCH (07:39)
[2021-01-30] MEDS: FOLIC ACID 1 MG TAB PO SCH (07:39)
[2021-01-30] MEDS: CYANOCOBALAMIN 500 MCG TABLET (VITAMIN B-12) PO SCH (07:39)
[2021-01-30] MEDS: AMOXICILLIN/CLAVULANATE 875 MG TAB PO SCH (07:39)
[2021-01-30] MEDS: METOPROLOL SUCC 50MG EXT REL TAB PO SCH (07:39)
[2021-01-30] MEDS: BRIMONIDINE TARTRATE-P 0.15% 5 ML BTL OP SCH (07:40)
--- NOTE | 2021-01-30 08:28 | Discharge Summary ---
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 Patient comes to the [facility] today following a fall onto his left hip. The patient was trying to put his socks on while standing up and fell on to his left hip, resulted in immediate pain and external rotation. In the EMD the patient had a Femur x-ray of the left leg, that revealed a nondisplaced intertrochanteric fracture of the left femur. Hospitalist service was consulted for admission. His pain is currently controlled, no NV/CV changes to the left leg[place] [facility] for evaluation of surgical repair. The patient's pulmonary embolism was in 2018, following drive to [place] which he reports that they stopped and had breaks, but that night he got short of breath and was taken to [facility] in [place], as this is where they were visiting. The patient reportedly had saddle pulmonary embolism at that time, as well as a lower extremity ultrasound revealing a occlusive thrombus to right popliteal vein extending into posterior tibial and peroneall veins. He spent a year on Xarelto and had a hypercoagulable workup performed. His hypercoag work-up revealed elevated homocysteine level so was placed on folate by his PCP. He had a follow up CT in 2019 to evaluate a questionable pulmonary nodule in the right upper lobe of his lung. This CT scan did not show pulmonary nodule but did note moderate coronary calcifications. He remains on daily asa and simvastatin 20mg. He is on Metformin for his DM II. The patient golfs at least 3 days a week (rides in cart), but does use stationary bicycle at least 3 times per week for 15-20 minutes at a time. He denies ever having any chest pain or dyspnea with these activities or being winded when walking up and down his steps or performing tasks around the house. His Revised Cardiac risk index is 0.4% and his geriatric sensitive probability of perioperative myocardial infraction or cardiac arrest is 0.3%. Patient will be admitted- kept NPO until evaluated by orthopaedics, hold asa and chemoprophylaxis until evaluated by orthopaedics. Continue with multi-tiered pain control. Admission Exam Per Admitting Provider PHYSICAL EXAM: General: awake, alert, no apparent distress Head: Normocephalic, atraumatic ENT: PERRL, EOMI, no pharyngeal exudate, mucous membranes moist Neuro: AAO x 3, speech clear and appropriate, strength intact bilaterally 5/5, sensation intact and equal all extremities and dermatomes, no pronator drift Chest: equal rise and fall of the chest, no accessory muscle use, no heaves or thrills, Clear to auscultation, on room air, Cardiac: Regular rate and rhythm, telemetry reviewed, skin warm dry, cap refill <3 seconds, peripheral pulses +2 no JVD, no murmur, no edema GI: NABS x 4 quadrants, soft, nontender to palpation, no rebound, guarding or tenderness : Spontaneously voiding, no pain, no CVA tenderness, Extremities: Pain to left hip, external rotation, no peripheral edema or erythema, calfs nontender to palpation Psych: Normal mood and affect Skin: no rash or erythema Principal Diagnosis Non-displaced intertrochanteric fracture of the left femur Discharge Exam Temp Pulse Resp BP Pulse Ox 36.9 C 67 20 160/75 H 94 01/30/21 07:09 01/30/21 07:16 01/30/21 07:09 01/30/21 07:09 01/30/21 07:09 Constitutional average body habitus; no acute distress Eyes + anicteric sclerae ENMT Ears: no hearing impairment Neck normal visual inspection Respiratory normal respiratory effort, lungs clear to auscultation Cardiovascular RRR, no murmur, no edema Gastrointestinal (Abdomen) Inspection/Auscultation: + hypoactive bowel sounds Percussion/Palpation: abdomen soft; abdomen nontender Musculoskeletal Head/Neck/Chest: normocephalic Skin no rashes, warm and dry Psychiatric A+Ox3, euthymic affect Discharge Data Allergies Allergy/AdvReac Type Severity Reaction Status Date / Time Sulfa (Sulfonamide Allergy Intermediate HIVES Verified 01/24/21 13:54 Antibiotics) Consultations 01/24/21 14:21 ED Decision to Admit Stat 01/24/21 16:58 Consult Anesthesiology Routine Consult Orthopedic Surgery Routine 01/26/21 10:40 Consult Cardiology Routine Procedures Performed Operation Date: 01/25/21 07:50 Actual Procedures p Left Trochanteric Femoral Nail(Left) - Bud J Garrett, DO Ordered Studies 01/25/21 10:30 FL hip LT 2-3V Routine Hospital Course (1) Intertrochanteric fracture of left femur: Non-displaced intertrochanteric fracture of the left femur s/p mechanical fall at home Ortho consultedappreciate assistance POD#5 s/p trochanteric nailing today with Dr. Garrett. Unfortunately had some aspiration intra-op and required increased oxygenation and 94% on 5 L oxygen mask Senna, Miralax added for bowel regimen---reports last BM was 01/29 Pain control with Tylenol, oxycodone Lovenox for DVT proph --> plans for Xarelto as below (afib) Continue PT/OT --> plan to d/c to [facility] this morning (2) Atrial fibrillation with RVR: Developed AFIB c RVR post-operatively with rates 130-150s, up to 170s Multiple doses of IV Cardizem, digoxin x 1 dose 0.125mcg IV Cardiology consulted ECHO with RV dilation but suspected due to prior saddle PE per cardiology(on consult) Switched to Lopressor 5mg IV Q1H and eventually converted to NSR on 01/26 around 10:30pm normal sinus rhythm Has been started on metoprolol succinate 50mg daily -- continue at d/c Will plan on Xarelto at reduced dose at discharge as well and this was discussed with patient. Will alert CM to check pricing/coupon (will d/c ASA to prevent bleeding) TSH WNL Rates controlled and in NSR, but BP elevated at 160/75 this AM. Patient is asymptomatic. Continue to monitor. Recommend f/u with PCP as an outpatient. (3) Acute respiratory failure with hypoxia: Aspiration Pneumonia/Acute Repsiratory Failure with Hypoxia 2nd to aspiration in operative period, worsened subsequently with new onset afib/RVR as below Received 3 days of Unasyn---now on Augmentin. Plan to continue Augmentin on discharge. WBC count has normalized. He is afebrile. Recommend repeat CXR in 1 week for resolution as outpatient. This can be performed at [facility]. Currently O2 sat of 94% on room air at discharge. (4) CKD (chronic kidney disease), stage III: CKD IIIa - LOTTERIES AGENT 1.46 on admission normally 1.3--- now returned to baseline at 1.36 on 01/28 Metformin held while inpatient. OK to resume on discharge. (5) Lumbar spinal stenosis: Chronic- with some mild radiculopathy down bilateral upper thigh Tiered pain control as above -- only requiring tylenol (6) Coronary artery calcification: Noted on CT scan in 2019 - Normal ECG, no anginal symptoms or exercise intolerance - Continue with simvastatin 20mg - Discontinue ASA, and start Xarelto 15mg daily for a-fib per cardiology (7) Pulmonary embolism, bilateral: As per HPI- off anticoagulation for ~year - is on folate for hyperhomocysteinemia and this has been continued Repeat echo w RV dilation but felt to be related to resolved saddle PE. No need for acute CTA Plans for Xarelto at discharge (8) Type 2 diabetes mellitus: Controlled only with Metformin 500 mg daily A1c most recently only 6.4 in November 2020 Goal <180 - AC/HS checks - notify hospitalist if >180 will add coverage (9) Glaucoma: Continue home eye drops (10) Dyslipidemia: Continue simvastatin (11) Hypoxia: As above. 94% on RA this morning. 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 Total Time Total Time Spent Total Time Spent (In Minutes): >30 minutes Discharge Plan Discharge Items Patient Disposition: Transfer Inpatient Rehab Fac Reason For Visit: FALL WITH LEFT HIP FRACTURE Discharge Diagnosis: Left Hip Fracture, Afib, Aspiration Pneumonia Condition on Discharge: Good Goals: You have been hospitalized for an urgent problem which required surgery. During your stay at [facility], we have made an effort to correct the problem that brought you to the hospital while keeping you as comfortable as possible. Surgery and medications were used to bring your condition under control and your discharge instructions will include directions for any medications you should take after leaving the hospital. Please make sure to follow the advice of your surgeon regarding follow up with the surgeon and with your primary care provider. Activity: Per Instructions section Non-emergency contact: Surgeon Call non-emergency contact if: your pain is not controlled, your temperature is above 101.5, your wound has increased redness and your wound has increased drainage Follow-up/Referrals: Liang Low MD [Primary Care Provider] - Bud Garrett DO [Surgeon] - (Follow up in 10-14 days for wound check and staple removal. ) Diet: Carb Consistent or DM2 and Heart Healthy Addtl Attending Provider Instructions: You have been hospitalized for a left hip fracture. Orthopedics was consulted and performed utilized left trochanteric femoral nail for correction. You will need to use walker and advance activity as tolerated with therapy. You have been controlled with Tylenol and you may continue this as needed but should avoid exceeding 3,000mg in 24 hour period. You had an aspiration event in operative period and given crackles to RML/RLL on examination and productive cough you were started on antibiotics and are being sent on course of Augmentin to complete 7 day course. You have 3 more days to complete treatment and this will be twice daily. You were noted to have atrial fibrillation after surgery and medications were used to help restore regular rhythm, which thankfully occurred and you have remained in normal rhythm with the use of metoprolol succinate 50mg daily and this has been continued at discharge. Cardiology was consulted and decision was made to utilize Xarelto at a reduced dose of 15mg by mouth daily in the evenings WITH FOOD. PLEASE REMEMBER TO AVOID ANY NSAIDS WHILE ON XARELTO TO PREVENT RISK OF BLEEDING (IE IBUPROFEN/ALEVE/NAPROXEN/MOTRIN/ETC) Prescriptions have been sent for both of these medications and the Xarelto will also cover you as DVT prophylaxis following hip fracture as well. Please follow up with your primary care provider, orthopedic surgeon in the next 1-2 weeks to monitor your progress. You may follow up with Dr Neville as needed/wish. You should return to the emergency department with any fever, chest pain, shortness of breath, unusual bleeding from gums/urine/stool, or for any other symptoms that are concerning for you. It has been a pleasure being a part of the medical team providing for you while you have been in the hospital. Take care! ANTICOAGULATION D/C INSTRUCTIONS (PLEASE NOTE YOU ARE ON DOSING ADJUSTED FOR REDUCED KIDNEY FUNCTION YOUR BASELINE GFR < 50) Medication Instructions: Your condition is typically treated with an anticoagulant. Anticoagulants will thin your blood to help prevent new clots. * You should take her medication exactly as directed. * Never skip a dose. * Never take a double dose. If you miss a dose, take it as soon as you remember. Call your Primary Care doctor if you experience any of the following: * Swelling or Pain in your leg * Sudden, continuous pain deep in a muscle * Pain that worsens when you are active or when you stand still for a long time * Chest Pain * Sudden Shortness of Breath * Rapid or pounding heart beat * Fainting * Dizziness * Cough with blood or bloody sputum * Sweating more than normal * Bruises * Heavy or uncontrolled bleeding * Blood in your urine, stool or vomit * Black or tarry stools Caring for Your Self at Home: * Avoid sitting, standing or lying down for long periods without moving your legs and feet * When traveling by car, stop to get out and move around at least once every 3 hours * On long airplane, train or bus rides, get up and move around when possible * If you can't get up, wiggle your toes and tighten your calves to keep your blood moving Follow Up: It is important for you to keep your follow up appointments with your medical provider. Addtl Contracting Specialist Provider Instructions: [facility] DISCHARGE INSTRUCTIONS: HIP FRACTURE SELF CARE INSTRUCTIONS: A. You are to ambulate with a walker or crutches for approximately 6 weeks. B. You are WEIGHT BEARING TOLERATED on your operative lower extremity for at least 6 weeks. C. Wear low heeled shoes with non-slip soles D. Be sure that your floors are free of things that could trip you throw rugs, electrical cords, and small objects. Avoid wet and waxed floors, especially with crutches/walker/cane. E. Try to walk several times a day with rest periods between. F. You may shower and get the incision area wet, but DO NOT soak or submerge incision area in water. (No baths, swimming pools, hot tubs) G. Daily dressing changes for the first week. Then change every other day there after till you see your Physician back in the office for a wound check. H. Do NOT apply soap or any ointment/lotions directly over incision. I. You may use ice as needed to operative site. SPECIAL CARE INSTRUCTIONS: VERY IMPORTANT TO READ AND REVIEW A. You may be at risk for phlebitis or blood clots. a. Wear surgical stockings (JUAN hose) for 2 weeks after surgery to improve circulation and reduce swelling. b. Take Rivaroxiban as directed. This is your blood thinner. B. There are a few signs you need to watch for after you are home. Call [facility] at [phone] if you experience any of the following: a. If you have a temperature of 101 degrees or higher. b. Sudden increase in pain in your hip not relieved by rest or pain medication. c. Any fluid or drainage from the incision; redness of the incision. d. Shortness of breath or chest pain. C. Call your physician if: a. Temperature is greater than 101 degrees (F). b. Pain is not relieved by prescribed pain medications. c. Increase drainage or redness from incision. d. Unanswered questions or concerns. D. Pain Medication: a. You will be prescribed pain medication upon discharge that should last till your first post-operative appointment. b. If you experience nausea and/or skin rash, discontinue this medication and contact our office for an alternative me dication. c. Caution- narcotic pain medication can cause constipation. FOLLOW UP VISIT: Please call [facility] at [phone] to schedule a follow up appointment 10-14 days from the date of your surgery date. Pending Studies at Discharge: No Stand-Alone Forms: My [facility] Skilled Items Patient informed of condition?: Yes DNR: No Discharge Level of Care: Acute rehab Communicable Disease: No Discharge Prognosis: Stable Lines: None Urinary Catheter: No Medications and DC Order Prescriptions: New amoxicillin-pot clavulanate [Augmentin] 875-125 mg Tablet 1 tab PO BIDM Qty: 6 RF: 0 metoprolol succinate 50 mg Tablet Extended Release 24 Hr 50 mg PO QAM Qty: 30 RF: 0 acetaminophen 325 mg Tablet 650 mg PO Q6H PRNQty: 0 RF: 0 bisacodyl 10 mg Suppository 10 mg PA DAILY PRN (Reason: constipation) Qty: 0 RF: 0 rivaroxaban 15 mg tablet 15 mg PO PM Qty: 30 RF: 0 Continued (DME) OneTouch Ultra Blue Test Strip Strip See Dose Instructions .ROUTE .MEDSUPPLY Qty: 100 RF: 3 (DME) lancets [OneTouch Delica Plus Lancet] 33 gauge misc See Dose Instructions .ROUTE .MEDSUPPLY Qty: 100 RF: 3 cyanocobalamin (vitamin B-12) 1,000 mcg capsule 1,000 mcg PO DAILY Qty: 30 RF: 0 folic acid 1 mg tablet 1 mg PO DAILY Qty: 30 RF: 2 pyridoxine (vitamin B6) 50 mg tablet 50 mg PO DAILY Qty: 30 RF: 0 metformin 500 mg tablet 500 mg PO QPM Qty: 90 RF: 3 cholecalciferol (vitamin D3) 1,000 unit capsule 2,000 units PO DAILY RF: 0 omeprazole 20 mg tablet,delayed release (DR/EC) 20 mg PO DAILY Qty: 30 RF: 2 dorzolamide-timolol 22.3-6.8 mg/mL drops 1 drp OPL BID RF: 0 Alphagan P 0.1 % drops 1 drp OPL BID RF: 0 simvastatin 20 mg tablet 20 mg PO QPM RF: 0 Discharge Orders: Discharge Order (Routine); Ordered 01/30/21 Ordered By: Venus Ga Admission Data Admit Date/Time: 01/24/21 15:18 Attending Provider: Beka Cameron Admit Provider: Bud Medellin Primary Care Provider: Liang Low Other Providers: Bud Medellin ; Treva Perez ; Madelyn Montes ; Gwen Lozano ; Joanie Zamora ; Theodora Ivory ; Pablo Cintron ; Barry Pop ; Quan Pate ; Remigio Temple ; Tricia Temple ; Alfonso Piedra ; Akila Shipley ; Slick Cuello ; Bautista Nava ; Dez Schreiber ; Joni Ortiz ; Tiarra Amaya ; Prince Almeida ; Silva Andrade ; Chayito Almeida ; Ryan Woods ; Latrice Villela ; Donald Reynaga ; Keerthi Ba ; Liss Lundberg ; Latrice Villafuerte ; Sheela Farrell ; Raghu Britt ; Marichuy Vidal ; Rain Maya ; Andra Mosquera ; Eulalia Reid ; Arnie Reid V ; Yakov Middleton ; Madelyn Mcnair ; Chai Griffin ; Syl Landon ; Diana Mcgee ; Arnie Boyd ; Mariano Amaya ; Demetri Sunshine ; Maricruz Dejesus ; Mita Gonzalez ; Arnie Evans ; Andra Oliver ; Garth Cisneros ; Ramana Ortiz ; Qi Atkinson ; Armando Vivar ; Cathy Butts ; Sampson Coleman ; Abraham Portillo ; Armando Justin ; Pablo Petty Jr ; Barbra Dillon ; Naresh Jaramillo ; Sergey Mejia ; Chai Reaves ; Venita Toscano ; Bud Garrett ; Yvette Molina ; Ritchie Robledo ; Armando Huizar ; Prince Fernandez ; Joni Merida ; Armando Arnold ; Quan Jimenez ; Shon Samson ; Jose Daniel Colmenares ; Narciso Mcclain ; Yvette Whitney ; [place] ; Grey May ; Leann Dutta ; Ramana Momin ; Chayito Malone ; Arvind Mantilla ; [facility] ; [facility] Other Interventions: Discharge Summary Assessment (RN) Last Done: 01/30/21 07:07 Supervising Physician Co-Signing Physician Notes Attending Attestation - Pt seen/examined, chart reviewedl, care plan d/w ATHLETIC INSTRUCTORNIKOLE Ga. I agree w/ the mchugh components of her documentation. 89yo male POD #5 s/p left hip fracture ORIF. Course complicated by post-operative acute pulmonary insufficiency 2nd to aspiration event leading to aspiration pneumonia and rapid PAF. Treated with IV/PO antibiotics, AV sanjiv agents, and initiation of anticoagulation (xarelto). Echo with preserved EF this admission. O2 was weaned off by time of discharge. Discharge exam - gen - NAD, pleasant neck - no JVD mouth - MMM heart - RRR, s1 s2 lungs - mild right basilar rales, otherwise CTA b/l abd - soft NT ND BS+ ext - left thigh dressings intact, mild edema left thigh, pulses 2+ b/l feet psych - a/o x 3 Will need f/u with [facility] shortly after discharge for his L hip fracture. Beka Cameron MD Coding Level of Care Code D/C DAY MANAGEMENT >30 MINS Diagnoses Intertrochanteric fracture of left femur S72.142A Atrial fibrillation with RVR I48.91 Acute respiratory failure with hypoxia J96.01 CKD (chronic kidney disease), stage III N18.30 Lumbar spinal stenosis M48.062 Neurogenic claudication status: with neurogenic claudication Coronary artery calcification I25.10; I25.84 Pulmonary embolism, bilateral I26.99 Type 2 diabetes mellitus E11.9 Diabetes mellitus complication status: without complication Diabetes mellitus jail insulin use: without jail use Glaucoma H40.9 Dyslipidemia E78.5 Hypoxia R09.02
--- NOTE | 2021-02-07 15:02 | Coding Query ---
CODING QUERY To promote full compliance with coding requirements relating to patient care, provider participation is requested in all cases of auto bench mechanic uncertainty. Please assist us with the question(s) below: Coding Question(s): There is documentation in the record and on the Discharge Summary of, "Acute respiratory failure with hypoxia: Aspiration Pneumonia/Acute Repsiratory Failure with Hypoxia 2nd to aspiration in operative period, worsened subsequently with new onset afib/RVR". Please specify below, in your clinical opinion, regarding each of the diagnosis. ASPIRATION PNEUMONIA ( ) likely an Intra-operative Complication of the surgical procedure ( x ) likely a Post-operative Complication of the surgical procedure ( ) likely a Complication of Other: Please Specify ( ) Not a Complication of the surgical procedure ACUTE RESPIRATORY FAILURE WITH HYPOXIA ( ) likely an Intra-operative Complication of the surgical procedure ( x ) likely a Post-operative Complication of the surgical procedure ( ) likely a Complication of Other: Please Specify ( ) Not a Complication of the surgical procedure AFIB/RVR ( ) likely an Intra-operative Complication of the surgical procedure ( ) likely a Post-operative Complication of the surgical procedure ( x ) likely a Complication of Other: Please Specify__unknown etiology ( ) Not a Complication of the surgical procedure Physician's Response(s): Thank you Rhonda Stephenson Principal Diagnosis: "that condition established after study, to be chiefly responsible for occasioning the admission of the patient to the hospital for care." Co-Existing Principal Diagnosis: "when two or more diagnoses equally meet the criteria for principal diagnosis as determined by the circumstances of admission, diagnostic work up, and/or therapy provided, and the Alphabetic Index, Tabular List, or another coding guideline does not provide sequencing direction, any one of the diagnoses may be sequenced first." "When the physician has documented what appears to be a current diagnosis in the body of the record, but has not included the diagnosis in the final diagnostic statement, the physician should be asked whether the diagnosis should be added." (Source Coding [facility] 2 QTR90. p3-4) TYREL
== END 2021-01-30 10:05 | DRG 480 ==
LOC: ED 12:03 → SUATTDRO 15:18 → 3N 15:18 → 2W 01-25 12:06